=== PATIENT | female | born 1965 | race Hispanic/Latino ===

== ENCOUNTER 2021-04-18 22:57 | Inpatient (IN) | payer OTHER ==
[~2021-04-18] VITALS: Ht 165.1 cm; Wt 93.4 kg
[2021-04-18 23:09] VITALS: BP 136/74
[2021-04-18] MEDS ORDERED: CEFTRIAXONE 1G VIAL IVP ONE (23:30)
[2021-04-18] MEDS ORDERED: AZITHROMYCIN 500MG VIAL IVPB ONE (23:30)
[2021-04-18] MEDS ORDERED: 0.9% NACL 250ML IVPB ONE (23:30)
[2021-04-18 23:44] VITALS: BP 107/62
[2021-04-18 23:51] LABS: BASOPHILS % (AUTO) 0.1 % (0.0-5.0); HEMATOCRIT 40.7 % (36-48); LYMPHOCYTES % (AUTO) 11.2 % (21.0-51.0); MEAN CORPUSCULAR HEMOGLOBIN 29.8 pg (27.0-33.0); MEAN CORPUSCULAR HGB CONC 32.2 g/dL (32.0-36.0); MEAN CORPUSCULAR VOLUME 92.7 fL (79-99); MONOCYTES % (AUTO) 4.2 % (3.0-13.0); NEUTROPHILS % (AUTO) 83.9 % (40.0-77.0); PLATELET COUNT (AUTO) 195 K/uL (130-400); RED BLOOD CELL COUNT(AUTO) 4.39 MIL/uL (4.00-5.50); RED CELL DISTRIBUTION WIDTH 12.8 % (11.0-15.5)
[2021-04-19] VITALS (10 sets, daily range): BP systolic 107–121; BP diastolic 49–75
[2021-04-19 00:10] LABS: PROTHROMBIN TIME 10.9 SEC (9.6-11.6)
[2021-04-19 00:12] LABS: ALBUMIN 2.6 g/dL (3.5-5.0); BILIRUBIN,TOTAL 0.3 mg/dL (0.2-1.0); CREATININE 4.6 mg/dL (0.5-1.5); PARTIAL THROMBOPLASTIN TIME 30.2 SEC (26.3-35.5); POTASSIUM 5.4 mmol/L (3.5-5.1); TOTAL PROTEIN, SERUM 7.5 g/dL (6.0-8.3)
[2021-04-19 00:34] LABS: B-TYPE NATRIURETIC PEPTIDE 20 pg/mL (0-100)
[2021-04-19] MEDS ORDERED: CEFTRIAXONE 1G VIAL ONE (00:40)
[2021-04-19] MEDS ORDERED: AZITHROMYCIN 500MG+NS 250ML 250 ML IV ONE (00:40)
[2021-04-19] MEDS: DEXAMETHASONE SOD PHOSPHATE 4 MG/ML 1ML VIAL IVP SCH ×3 (00:43→23:21)
[2021-04-19] MEDS ORDERED: INSULIN HUMULIN R 100 UNIT/ML 3ML IV ONE (02:00)
[2021-04-19] MEDS ORDERED: 0.9%NACL 1000ML 2,000 ML IV ONE ×2 (03:53→04:00)
[2021-04-19 04:37] LABS: ABG BASE EXCESS -7.7 mmol/L (-2.0-3.0); ABG HCO3 17.7 mmol/L (21.0-28.0); ABG OXYGEN SATURATION 89.8 % (95.0-99.0); ABG PCO2 36 mmHg (32-45)
[2021-04-19] MEDS: CEFTRIAXONE 1G VIAL IVP SCH ×2 (05:00→17:19)
[2021-04-19] MEDS ORDERED: DEXTROSE 5 %-0.45 % NACL 1,000 ML IV PRN (05:00)
[2021-04-19] MEDS: ALBUTEROL INHALER 90MCG/INH IH SCH ×4 (05:00→22:46)
[2021-04-19] MEDS ORDERED: 0.9%NACL 1000ML 1,000 ML IV SCH (05:00)
[2021-04-19] MEDS ORDERED: ERGOCALCIFEROL (VITAMIN D2) 50,000 UNIT CAPSULE PO ONE (05:00)
[2021-04-19] MEDS ORDERED: KAYEXALATE 15GM/60ML PO ONE (05:00)
[2021-04-19] MEDS ORDERED: INSULIN HUMULIN R 100 UNIT/ML 3ML ONE (06:09)
[2021-04-19] MEDS ORDERED: 0.9%NACL 100ML 100 ML ONE (06:10)
[2021-04-19 06:20] LABS: CREATININE 4.2 mg/dL (0.5-1.5); MAGNESIUM 2.5 mg/dL (1.80-2.40); PHOSPHORUS 3.8 mg/dL (2.5-4.9); POTASSIUM 5.3 mmol/L (3.5-5.1)
[2021-04-19] MEDS ORDERED: 0.9%NACL 1000ML 1,000 ML IV ONE (06:24)
[2021-04-19 06:30] LABS: HEMOGLOBIN A1C 8.9 % (4.0-6.0)
[2021-04-19] MEDS: 0.9%NACL 1000ML 1,000 ML IV SCH ×4 (06:31→20:38)
[2021-04-19] MEDS ORDERED: ERGOCALCIFEROL (VITAMIN D2) 50,000 UNIT CAPSULE ONE (06:39)
[2021-04-19] MEDS: INSULIN REGULAR, HUMAN 3ML 100 UNIT in 0.9%NACL 100ML 99 ML IV PRN ×2 (06:48)
[2021-04-19] MEDS: DOXYCYCLINE 100MG+NS 250ML IV SCH ×2 (06:48→17:19)
[2021-04-19] MEDS ORDERED: KAYEXALATE 15GM/60ML ONE (06:56)
[2021-04-19] MEDS: ASCORBIC ACID 500 MG TAB PO SCH (09:00)
[2021-04-19] MEDS: ZINC SULFATE 220 CAPSULE PO SCH (09:00)
[2021-04-19] MEDS ORDERED: HEPARIN 5,000 UNIT VIAL SQ SCH (09:00)
[2021-04-19] MEDS: FAMOTIDINE 20MG TAB PO SCH (09:00)
[2021-04-19 12:18] LABS: CREATININE 4.1 mg/dL (0.5-1.5); MAGNESIUM 2.4 mg/dL (1.80-2.40); POTASSIUM 3.9 mmol/L (3.5-5.1)
[2021-04-19 14:14] LABS: ABG BASE EXCESS -12.3 mmol/L (-2.0-3.0); ABG HCO3 13.1 mmol/L (21.0-28.0); ABG OXYGEN SATURATION 93.4 % (95.0-99.0); ABG PCO2 29 mmHg (32-45)
[2021-04-19 17:32] LABS: CREATININE 3.8 mg/dL (0.5-1.5); MAGNESIUM 2.4 mg/dL (1.80-2.40); POTASSIUM 4.5 mmol/L (3.5-5.1)
[2021-04-19 18:55] LABS: ABG HCO3 13.9 mmol/L (21.0-28.0); ABG OXYGEN SATURATION 92.3 % (95.0-99.0); ABG PCO2 29 mmHg (32-45)
[2021-04-19 23:12] LABS: CREATININE 3.6 mg/dL (0.5-1.5); MAGNESIUM 2.2 mg/dL (1.80-2.40); POTASSIUM 3.8 mmol/L (3.5-5.1)
[2021-04-20] VITALS (13 sets, daily range): BP systolic 100–131; BP diastolic 56–68
[2021-04-20] MEDS ORDERED: INSULIN HUMULIN R 100 UNIT/ML 3ML ONE ×2 (01:24→22:51)
[2021-04-20 04:21] LABS: ABG BASE EXCESS -11.9 mmol/L (-2.0-3.0); ABG HCO3 12.5 mmol/L (21.0-28.0); ABG OXYGEN SATURATION 88.9 % (95.0-99.0); ABG PCO2 26 mmHg (32-45)
[2021-04-20] MEDS: ALBUTEROL INHALER 90MCG/INH IH SCH ×3 (05:08→17:19)
[2021-04-20] MEDS: DOXYCYCLINE 100MG+NS 250ML IV SCH ×2 (05:08→17:20)
[2021-04-20] MEDS: DEXAMETHASONE SOD PHOSPHATE 4 MG/ML 1ML VIAL IVP SCH ×2 (05:08→23:30)
[2021-04-20] MEDS: CEFTRIAXONE 1G VIAL IVP SCH ×2 (05:08→17:20)
[2021-04-20 05:26] LABS: BASOPHILS % (AUTO) 0.2 % (0.0-5.0); HEMATOCRIT 42.2 % (36-48); LYMPHOCYTES % (AUTO) 9.4 % (21.0-51.0); MEAN CORPUSCULAR HEMOGLOBIN 30.2 pg (27.0-33.0); MEAN CORPUSCULAR HGB CONC 32.2 g/dL (32.0-36.0); MEAN CORPUSCULAR VOLUME 93.8 fL (79-99); NEUTROPHILS % (AUTO) 86.1 % (40.0-77.0); PLATELET COUNT (AUTO) 238 K/uL (130-400); RED CELL DISTRIBUTION WIDTH 12.8 % (11.0-15.5); WHITE BLOOD COUNT (AUTO) 10.6 K/uL (4.8-10.8)
[2021-04-20] MEDS: 0.9%NACL 1000ML 1,000 ML IV SCH ×4 (06:00→16:00)
[2021-04-20 06:03] LABS: BILIRUBIN,TOTAL 0.3 mg/dL (0.2-1.0); CREATININE 3.2 mg/dL (0.5-1.5); TOTAL PROTEIN, SERUM 7.4 g/dL (6.0-8.3)
[2021-04-20 07:22] LABS: APPEARANCE,URINE Cloudy (CLEAR); BILIRUBIN,URINE Negative (NEGATIVE); COLOR,URINE Yellow (YELLOW); GLUCOSE, URINE (UA) Negative (NEGATIVE); KETONES,URINE Trace mg/dL (NEGATIVE); LEUKOCYTE ESTERASE ,URINE Trace (NEGATIVE); NITRATE,URINE Negative (NEGATIVE); OCCULT BLOOD,URINE Negative (NEGATIVE); PROTEIN,URINE POS 1+ mg/dL (NEGATIVE); UROBILINOGEN,URINE 0.2 mg/dL (0.2-1.0)
[2021-04-20 07:24] LABS: PROTEIN,URINE RANDOM 69.3 mg/dL (0-11.9)
[2021-04-20 07:36] LABS: BACTERIA,URINE Few /HPF (None Seen); RBC,URINE 0-1 /HPF (0-1); WBC,URINE 0-1 /HPF (0-1); YEAST,URINE BUDDING Many /HPF (None Seen)
[2021-04-20 07:37] LABS: SQUAMOUS EPITHELIAL CELL,UR 0-2 /HPF (0-2)
[2021-04-20] MEDS: ENOXAPARIN SODIUM 30 MG/0.3 ML SQ SCH (09:00)
[2021-04-20] MEDS: ZINC SULFATE 220 CAPSULE PO SCH (09:00)
[2021-04-20] MEDS: FAMOTIDINE 20MG TAB PO SCH (09:00)
[2021-04-20] MEDS: ASCORBIC ACID 500 MG TAB PO SCH (09:00)
[2021-04-20 14:08] LABS: CREATININE 2.8 mg/dL (0.5-1.5)
[2021-04-20] MEDS ORDERED: LIDOCAINE HCL-MPF 1% 2ML VIAL ONE (14:59)
[2021-04-20] MEDS: POTASSIUM CHLORIDE 10MEQ/100ML 100 ML IV PRN (15:10)
[2021-04-20] MEDS: D5W-1/2 NS/20MEQ KCL 1,000 ML IV SCH ×2 (16:09→21:00)
[2021-04-20 20:29] LABS: CREATININE 2.5 mg/dL (0.5-1.5); POTASSIUM 3.4 mmol/L (3.5-5.1)
[2021-04-21] VITALS (9 sets, daily range): BP systolic 102–133; BP diastolic 49–74
[2021-04-21] MEDS: ALBUTEROL INHALER 90MCG/INH IH SCH ×5 (00:14→23:00)
[2021-04-21] MEDS: INSULIN REGULAR, HUMAN 3ML 100 UNIT in 0.9%NACL 100ML 99 ML IV PRN ×2 (00:28)
[2021-04-21 02:01] LABS: CREATININE 2.3 mg/dL (0.5-1.5); MAGNESIUM 1.9 mg/dL (1.80-2.40)
[2021-04-21] MEDS: D5W-1/2 NS/20MEQ KCL 1,000 ML IV SCH ×3 (04:07→15:21)
[2021-04-21] MEDS: DOXYCYCLINE 100MG+NS 250ML IV SCH ×2 (05:00→17:57)
[2021-04-21 05:37] LABS: BASOPHILS % (AUTO) 0.1 % (0.0-5.0); HEMATOCRIT 35.4 % (36-48); LYMPHOCYTES % (AUTO) 6.9 % (21.0-51.0); MEAN CORPUSCULAR HEMOGLOBIN 29.8 pg (27.0-33.0); MEAN CORPUSCULAR HGB CONC 32.8 g/dL (32.0-36.0); NEUTROPHILS % (AUTO) 89.8 % (40.0-77.0); PLATELET COUNT (AUTO) 243 K/uL (130-400); RED BLOOD CELL COUNT(AUTO) 3.89 MIL/uL (4.00-5.50); WHITE BLOOD COUNT (AUTO) 10.5 K/uL (4.8-10.8)
[2021-04-21 06:00] LABS: ALBUMIN 1.7 g/dL (3.5-5.0); BILIRUBIN,TOTAL 0.5 mg/dL (0.2-1.0); CREATININE 2.1 mg/dL (0.5-1.5); CRP QUANTITATIVE 39.4 mg/L (0.00-9.0); MAGNESIUM 1.8 mg/dL (1.80-2.40); TOTAL PROTEIN, SERUM 6.8 g/dL (6.0-8.3)
[2021-04-21] MEDS: CEFTRIAXONE 1G VIAL IVP SCH ×2 (06:31→17:56)
[2021-04-21] MEDS: DEXAMETHASONE SOD PHOSPHATE 4 MG/ML 1ML VIAL IVP SCH ×2 (06:31→23:30)
[2021-04-21] MEDS: ZINC SULFATE 220 CAPSULE PO SCH (09:39)
[2021-04-21] MEDS: FAMOTIDINE 20MG TAB PO SCH (09:39)
[2021-04-21] MEDS: ASCORBIC ACID 500 MG TAB PO SCH (09:39)
[2021-04-21] MEDS: ENOXAPARIN SODIUM 30 MG/0.3 ML SQ SCH (09:39)
[2021-04-21] MEDS ORDERED: GLUCAGON 1MG KIT 1 MG ML IM PRN (12:00)
[2021-04-21] MEDS: INSULIN R PO SS2 SQ SCH ×2 (16:34→20:07)
[2021-04-21 17:00] LABS: CREATININE 1.9 mg/dL (0.5-1.5); POTASSIUM 3.6 mmol/L (3.5-5.1)
[2021-04-21] MEDS: GUAIFENESIN SUGAR-FREE 100 MG/5 ML UDCUP PO PRN (20:29)
[2021-04-22] VITALS (10 sets, daily range): BP systolic 112–128; BP diastolic 38–77
[2021-04-22] MEDS: DEXAMETHASONE SOD PHOSPHATE 4 MG/ML 1ML VIAL IVP SCH ×2 (05:00→23:00)
[2021-04-22] MEDS: ALBUTEROL INHALER 90MCG/INH IH SCH ×4 (05:46→23:00)
[2021-04-22] MEDS: DOXYCYCLINE 100MG+NS 250ML IV SCH ×2 (05:58→17:13)
[2021-04-22] MEDS: CEFTRIAXONE 1G VIAL IVP SCH ×2 (05:58→17:13)
[2021-04-22 07:23] LABS: BASOPHILS % (AUTO) 0.1 % (0.0-5.0); HEMATOCRIT 37.8 % (36-48); MEAN CORPUSCULAR HEMOGLOBIN 29.7 pg (27.0-33.0); MEAN CORPUSCULAR HGB CONC 32.8 g/dL (32.0-36.0); MEAN CORPUSCULAR VOLUME 90.4 fL (79-99); MONOCYTES % (AUTO) 1.1 % (3.0-13.0); NEUTROPHILS % (AUTO) 93.6 % (40.0-77.0); PLATELET COUNT (AUTO) 249 K/uL (130-400); RED BLOOD CELL COUNT(AUTO) 4.18 MIL/uL (4.00-5.50); WHITE BLOOD COUNT (AUTO) 11.8 K/uL (4.8-10.8)
[2021-04-22] MEDS: INSULIN R PO SS2 SQ SCH ×4 (07:30→21:00)
[2021-04-22] MEDS: INSULIN HUMULIN R 100 UNIT/ML 3ML SQ SCH ×3 (07:30→17:00)
[2021-04-22 07:46] LABS: ALBUMIN 1.9 g/dL (3.5-5.0); BILIRUBIN,TOTAL 0.2 mg/dL (0.2-1.0); CREATININE 1.5 mg/dL (0.5-1.5); CRP QUANTITATIVE 42.2 mg/L (0.00-9.0); POTASSIUM 3.2 mmol/L (3.5-5.1); TOTAL PROTEIN, SERUM 6.5 g/dL (6.0-8.3)
[2021-04-22] MEDS ORDERED: INSULIN GLARGINE 100 UNITS/ML 10 ML VIAL SQ SCH (08:00)
[2021-04-22] MEDS: ASCORBIC ACID 500 MG TAB PO SCH (09:14)
[2021-04-22] MEDS: FAMOTIDINE 20MG TAB PO SCH (09:14)
[2021-04-22] MEDS: ZINC SULFATE 220 CAPSULE PO SCH (09:14)
[2021-04-22] MEDS: ENOXAPARIN SODIUM 30 MG/0.3 ML SQ SCH (09:15)
[2021-04-22] MEDS ORDERED: SODIUM BICARBONATE 650 MG TAB PO SCH ×2 (09:30→21:00)
[2021-04-22] MEDS ORDERED: COMPOUND IV REFRIGERATED 1 EACH IVSOLN MISC PRN (20:00)
[2021-04-22] MEDS ORDERED: REMDESIVIR (EUA) 520 200 MG in 0.9% NACL 250ML 250 ML IV ONE (20:00)
[2021-04-22] MEDS ORDERED: PHARMACY COMMUNICATION MISC SCH (20:00)
[2021-04-23] VITALS (11 sets, daily range): BP systolic 120–152; BP diastolic 42–85
[2021-04-23] MEDS: GUAIFENESIN SUGAR-FREE 100 MG/5 ML UDCUP PO PRN (00:06)
[2021-04-23 04:09] LABS: ABG BASE EXCESS -3.4 mmol/L (-2.0-3.0); ABG HCO3 19.5 mmol/L (21.0-28.0); ABG OXYGEN SATURATION 91.8 % (95.0-99.0); ABG PCO2 30 mmHg (32-45)
[2021-04-23] MEDS: DEXAMETHASONE SOD PHOSPHATE 4 MG/ML 1ML VIAL IVP SCH (05:14)
[2021-04-23] MEDS: ALBUTEROL INHALER 90MCG/INH IH SCH ×4 (05:14→23:00)
[2021-04-23] MEDS: CEFTRIAXONE 1G VIAL IVP SCH ×2 (05:14→17:16)
[2021-04-23] MEDS: DOXYCYCLINE 100MG+NS 250ML IV SCH ×2 (05:14→17:30)
[2021-04-23] MEDS: REMDESIVIR LABS MISC SCH (06:00)
[2021-04-23] MEDS: INSULIN HUMULIN R 100 UNIT/ML 3ML SQ SCH ×6 (07:30→20:59)
[2021-04-23] MEDS ORDERED: INSULIN HUMULIN R 100 UNIT/ML 3ML SQ SCH (07:30)
[2021-04-23 07:49] LABS: CREATININE 1.3 mg/dL (0.5-1.5); MAGNESIUM 1.2 mg/dL (1.80-2.40); PHOSPHORUS 1.8 mg/dL (2.5-4.9); POTASSIUM 3.3 mmol/L (3.5-5.1)
[2021-04-23] MEDS: INSULIN GLARGINE 100 UNITS/ML 10 ML VIAL SQ SCH (08:00)
[2021-04-23 08:27] LABS: BASOPHILS % (AUTO) 0.3 % (0.0-5.0); EOSINOPHILS % (AUTO) 0.5 % (0.0-8.0); HEMATOCRIT 39.3 % (36-48); MEAN CORPUSCULAR HEMOGLOBIN 29.7 pg (27.0-33.0); MEAN CORPUSCULAR HGB CONC 33.6 g/dL (32.0-36.0); MEAN CORPUSCULAR VOLUME 88.5 fL (79-99); MONOCYTES % (AUTO) 1.8 % (3.0-13.0); NEUTROPHILS % (AUTO) 90.4 % (40.0-77.0); PLATELET COUNT (AUTO) 191 K/uL (130-400); RED BLOOD CELL COUNT(AUTO) 4.44 MIL/uL (4.00-5.50); RED CELL DISTRIBUTION WIDTH 13.1 % (11.0-15.5); WHITE BLOOD COUNT (AUTO) 10.2 K/uL (4.8-10.8)
[2021-04-23] MEDS: FAMOTIDINE 20MG TAB PO SCH (09:00)
[2021-04-23] MEDS: DEXTROSE 5%-WATER 1,000 ML IV SCH (09:00)
[2021-04-23] MEDS: BARICITINIB (EUA) 2 MG TABLET PO SCH (09:00)
[2021-04-23] MEDS: ZINC SULFATE 220 CAPSULE PO SCH (09:00)
[2021-04-23] MEDS: ENOXAPARIN SODIUM 40 MG/0.4 ML SYRINGE SQ SCH ×2 (09:00→21:03)
[2021-04-23] MEDS: ASCORBIC ACID 500 MG TAB PO SCH (09:00)
[2021-04-23] MEDS ORDERED: REMDESIVIR (EUA) 520 200 MG in 0.9% NACL 250ML 250 ML IV SCH (10:00)
[2021-04-23] MEDS ORDERED: SODIUM BICARBONATE 650 MG TAB ONE (10:23)
[2021-04-23] MEDS: MAGNESIUM 2GM PREMIX 50ML 50 ML IV PRN (12:00)
[2021-04-23] MEDS: POTASSIUM CHLORIDE 10MEQ/100ML 100 ML IV PRN (14:22)
[2021-04-23] MEDS ORDERED: LIDOCAINE HCL-MPF 1% 2ML VIAL ONE (14:23)
[2021-04-23] MEDS ORDERED: KCL 20 MEQ ERTAB PO ONE (20:30)
[2021-04-24] VITALS: BP 129/72
[2021-04-24] MEDS: DEXAMETHASONE SOD PHOSPHATE 4 MG/ML 1ML VIAL IVP SCH ×3 (00:59→16:41)
[2021-04-24 04:00] VITALS: BP 115/73
[2021-04-24] MEDS: DEXTROSE 5%-WATER 1,000 ML IV SCH (05:00)
[2021-04-24] MEDS: ALBUTEROL INHALER 90MCG/INH IH SCH ×3 (05:00→16:46)
[2021-04-24 05:28] LABS: ALBUMIN 1.7 g/dL (3.5-5.0); BILIRUBIN,DIRECT 0.1 mg/dL (0.0-0.3); BILIRUBIN,TOTAL 0.3 mg/dL (0.2-1.0); CREATININE 1.1 mg/dL (0.5-1.5); CRP QUANTITATIVE 175.3 mg/L (0.00-9.0); POTASSIUM 3.4 mmol/L (3.5-5.1); TOTAL PROTEIN, SERUM 6.6 g/dL (6.0-8.3)
[2021-04-24] MEDS: CEFTRIAXONE 1G VIAL IVP SCH ×2 (05:42→16:41)
[2021-04-24] MEDS: DOXYCYCLINE 100MG+NS 250ML IV SCH ×2 (05:42→16:41)
[2021-04-24] MEDS: REMDESIVIR LABS MISC SCH (05:57)
[2021-04-24] MEDS: INSULIN HUMULIN R 100 UNIT/ML 3ML SQ SCH ×7 (05:58→20:57)
[2021-04-24 08:17] VITALS: BP 129/74
[2021-04-24] MEDS: BARICITINIB (EUA) 2 MG TABLET PO SCH (08:44)
[2021-04-24] MEDS: ENOXAPARIN SODIUM 40 MG/0.4 ML SYRINGE SQ SCH (08:44)
[2021-04-24] MEDS: ASCORBIC ACID 500 MG TAB PO SCH (08:44)
[2021-04-24] MEDS: ZINC SULFATE 220 CAPSULE PO SCH (08:44)
[2021-04-24] MEDS: FAMOTIDINE 20MG TAB PO SCH (08:44)
[2021-04-24] MEDS: INSULIN GLARGINE 100 UNITS/ML 10 ML VIAL SQ SCH (08:46)
[2021-04-24 11:28] VITALS: BP 126/74
[2021-04-24] MEDS ORDERED: ALBUTEROL INHALER 90MCG/INH IH SCH (11:30)
[2021-04-24] MEDS: REMDESIVIR (EUA) 520 100 MG in 0.9% NACL 250ML 250 ML IV SCH (14:44)
[2021-04-24 16:52] VITALS: BP 137/84
[2021-04-24 20:10] VITALS: BP 121/77
[2021-04-24] MEDS: ENOXAPARIN SODIUM 60 MG/0.6 ML SQ SCH (20:57)
[2021-04-24] MEDS ORDERED: ENOXAPARIN SODIUM 100 MG/1 ML SQ SCH (21:00)
[2021-04-25] VITALS (7 sets, daily range): BP systolic 124–148; BP diastolic 63–84
[2021-04-25] MEDS: DEXTROSE 5%-WATER 1,000 ML IV SCH (01:00)
[2021-04-25 05:06] LABS: BASOPHILS % (AUTO) 0.1 % (0.0-5.0); HEMATOCRIT 35.4 % (36-48); LYMPHOCYTES % (AUTO) 9.7 % (21.0-51.0); MEAN CORPUSCULAR HEMOGLOBIN 29.6 pg (27.0-33.0); MEAN CORPUSCULAR HGB CONC 32.8 g/dL (32.0-36.0); MEAN CORPUSCULAR VOLUME 90.3 fL (79-99); MONOCYTES % (AUTO) 2.6 % (3.0-13.0); NEUTROPHILS % (AUTO) 86.1 % (40.0-77.0); PLATELET COUNT (AUTO) 214 K/uL (130-400); RED BLOOD CELL COUNT(AUTO) 3.92 MIL/uL (4.00-5.50); RED CELL DISTRIBUTION WIDTH 13.7 % (11.0-15.5); WHITE BLOOD COUNT (AUTO) 11.2 K/uL (4.8-10.8)
[2021-04-25] MEDS: DOXYCYCLINE 100MG+NS 250ML IV SCH ×2 (05:12→17:01)
[2021-04-25] MEDS: CEFTRIAXONE 1G VIAL IVP SCH ×2 (05:12→17:01)
[2021-04-25] MEDS: DEXAMETHASONE SOD PHOSPHATE 4 MG/ML 1ML VIAL IVP SCH ×2 (05:12→17:01)
[2021-04-25] MEDS: ALBUTEROL INHALER 90MCG/INH IH SCH ×4 (05:14→18:00)
[2021-04-25 05:22] LABS: ALBUMIN 1.8 g/dL (3.5-5.0); BILIRUBIN,TOTAL 0.4 mg/dL (0.2-1.0); CREATININE 1.3 mg/dL (0.5-1.5); POTASSIUM 3.3 mmol/L (3.5-5.1); TOTAL PROTEIN, SERUM 6.3 g/dL (6.0-8.3)
[2021-04-25] MEDS: INSULIN HUMULIN R 100 UNIT/ML 3ML SQ SCH ×6 (05:33→20:59)
[2021-04-25] MEDS: PANTOPRAZOLE 40 MG TAB DR PO SCH (08:39)
[2021-04-25] MEDS: ASCORBIC ACID 500 MG TAB PO SCH (08:39)
[2021-04-25] MEDS: ZINC SULFATE 220 CAPSULE PO SCH (08:39)
[2021-04-25] MEDS: BARICITINIB (EUA) 2 MG TABLET PO SCH (08:39)
[2021-04-25] MEDS: ENOXAPARIN SODIUM 60 MG/0.6 ML SQ SCH ×2 (08:41→19:59)
[2021-04-25] MEDS: INSULIN GLARGINE 100 UNITS/ML 10 ML VIAL SQ SCH (08:44)
[2021-04-25] MEDS ORDERED: KCL 20 MEQ ERTAB PO SCH (13:30)
[2021-04-25] MEDS: REMDESIVIR (EUA) 520 100 MG in 0.9% NACL 250ML 250 ML IV SCH (15:25)
[2021-04-26 03:44] VITALS: BP 143/89
[2021-04-26 04:48] LABS: BASOPHILS % (AUTO) 0.1 % (0.0-5.0); EOSINOPHILS % (AUTO) 0.1 % (0.0-8.0); HEMATOCRIT 35.2 % (36-48); LYMPHOCYTES % (AUTO) 6.3 % (21.0-51.0); MEAN CORPUSCULAR HGB CONC 32.1 g/dL (32.0-36.0); MEAN CORPUSCULAR VOLUME 93.4 fL (79-99); MONOCYTES % (AUTO) 1.4 % (3.0-13.0); NEUTROPHILS % (AUTO) 90.9 % (40.0-77.0); PLATELET COUNT (AUTO) 193 K/uL (130-400); RED BLOOD CELL COUNT(AUTO) 3.77 MIL/uL (4.00-5.50); RED CELL DISTRIBUTION WIDTH 14.1 % (11.0-15.5); WHITE BLOOD COUNT (AUTO) 13.3 K/uL (4.8-10.8)
[2021-04-26 05:12] LABS: ALBUMIN 1.7 g/dL (3.5-5.0); BILIRUBIN,TOTAL 0.3 mg/dL (0.2-1.0); CREATININE 1.2 mg/dL (0.5-1.5); CRP QUANTITATIVE 46.2 mg/L (0.00-9.0); POTASSIUM 3.9 mmol/L (3.5-5.1); TOTAL PROTEIN, SERUM 5.9 g/dL (6.0-8.3)
[2021-04-26] MEDS: DEXAMETHASONE SOD PHOSPHATE 4 MG/ML 1ML VIAL IVP SCH ×2 (06:01→16:41)
[2021-04-26] MEDS: INSULIN HUMULIN R 100 UNIT/ML 3ML SQ SCH ×4 (06:05→20:40)
[2021-04-26 08:26] VITALS: BP 122/70
[2021-04-26] MEDS: ASCORBIC ACID 500 MG TAB PO SCH (08:26)
[2021-04-26] MEDS: ZINC SULFATE 220 CAPSULE PO SCH (08:26)
[2021-04-26] MEDS: BARICITINIB (EUA) 2 MG TABLET PO SCH (08:26)
[2021-04-26] MEDS: PANTOPRAZOLE 40 MG TAB DR PO SCH (08:26)
[2021-04-26] MEDS: ENOXAPARIN SODIUM 60 MG/0.6 ML SQ SCH ×2 (08:27→20:39)
[2021-04-26 11:02] VITALS: BP 127/75
[2021-04-26] MEDS: ALBUTEROL INHALER 90MCG/INH IH SCH ×3 (12:00→23:12)
[2021-04-26] MEDS: REMDESIVIR (EUA) 520 100 MG in 0.9% NACL 250ML 250 ML IV SCH (15:12)
[2021-04-26] MEDS: DEXTROSE 5%-WATER 1,000 ML IV SCH (16:35)
[2021-04-26 16:43] VITALS: BP 122/76
[2021-04-26 20:00] VITALS: BP 110/75
[2021-04-26 23:36] VITALS: BP 133/69
[2021-04-27 04:19] VITALS: BP 133/66
[2021-04-27] MEDS: DEXAMETHASONE SOD PHOSPHATE 4 MG/ML 1ML VIAL IVP SCH ×2 (05:02→17:30)
[2021-04-27] MEDS: ALBUTEROL INHALER 90MCG/INH IH SCH ×3 (05:03→17:30)
[2021-04-27 06:13] LABS: BASOPHILS % (AUTO) 0.1 % (0.0-5.0); HEMATOCRIT 35.5 % (36-48); LYMPHOCYTES % (AUTO) 6.4 % (21.0-51.0); MEAN CORPUSCULAR HEMOGLOBIN 30.1 pg (27.0-33.0); MEAN CORPUSCULAR VOLUME 91.3 fL (79-99); NEUTROPHILS % (AUTO) 90.8 % (40.0-77.0); PLATELET COUNT (AUTO) 215 K/uL (130-400); RED BLOOD CELL COUNT(AUTO) 3.89 MIL/uL (4.00-5.50); RED CELL DISTRIBUTION WIDTH 13.4 % (11.0-15.5); WHITE BLOOD COUNT (AUTO) 14.8 K/uL (4.8-10.8)
[2021-04-27] MEDS: INSULIN HUMULIN R 100 UNIT/ML 3ML SQ SCH ×4 (06:30→20:23)
[2021-04-27 06:37] LABS: ALBUMIN 1.8 g/dL (3.5-5.0); BILIRUBIN,TOTAL 0.4 mg/dL (0.2-1.0); CREATININE 1.3 mg/dL (0.5-1.5); POTASSIUM 3.6 mmol/L (3.5-5.1)
[2021-04-27 08:00] VITALS: BP 132/75
[2021-04-27] MEDS: BARICITINIB (EUA) 2 MG TABLET PO SCH (09:26)
[2021-04-27] MEDS: ZINC SULFATE 220 CAPSULE PO SCH (09:26)
[2021-04-27] MEDS: PANTOPRAZOLE 40 MG TAB DR PO SCH (09:26)
[2021-04-27] MEDS: ASCORBIC ACID 500 MG TAB PO SCH (09:26)
[2021-04-27] MEDS: ENOXAPARIN SODIUM 60 MG/0.6 ML SQ SCH ×2 (09:27→20:12)
[2021-04-27 12:00] VITALS: BP 128/77
[2021-04-27] MEDS: REMDESIVIR (EUA) 520 100 MG in 0.9% NACL 250ML 250 ML IV SCH (14:49)
[2021-04-27 16:00] VITALS: BP 133/69
[2021-04-27 20:00] VITALS: BP 125/70
[2021-04-27 23:44] VITALS: BP 123/68
[2021-04-28] MEDS: ALBUTEROL INHALER 90MCG/INH IH SCH ×5 (00:09→23:38)
[2021-04-28 03:42] VITALS: BP 122/66
[2021-04-28] MEDS: DEXAMETHASONE SOD PHOSPHATE 4 MG/ML 1ML VIAL IVP SCH ×2 (04:25→16:48)
[2021-04-28 05:43] LABS: BASOPHILS % (AUTO) 0.1 % (0.0-5.0); EOSINOPHILS % (AUTO) 0.1 % (0.0-8.0); HEMATOCRIT 32.8 % (36-48); LYMPHOCYTES % (AUTO) 5.8 % (21.0-51.0); MEAN CORPUSCULAR HEMOGLOBIN 29.5 pg (27.0-33.0); MEAN CORPUSCULAR HGB CONC 32.6 g/dL (32.0-36.0); MEAN CORPUSCULAR VOLUME 90.4 fL (79-99); MONOCYTES % (AUTO) 1.9 % (3.0-13.0); NEUTROPHILS % (AUTO) 91.3 % (40.0-77.0); PLATELET COUNT (AUTO) 220 K/uL (130-400); RED BLOOD CELL COUNT(AUTO) 3.63 MIL/uL (4.00-5.50); RED CELL DISTRIBUTION WIDTH 13.2 % (11.0-15.5); WHITE BLOOD COUNT (AUTO) 15.6 K/uL (4.8-10.8)
[2021-04-28 05:56] LABS: CREATININE 1.1 mg/dL (0.5-1.5); POTASSIUM 3.5 mmol/L (3.5-5.1)
[2021-04-28] MEDS: INSULIN HUMULIN R 100 UNIT/ML 3ML SQ SCH ×4 (06:28→20:22)
[2021-04-28 08:00] VITALS: BP 126/73
[2021-04-28] MEDS: ASCORBIC ACID 500 MG TAB PO SCH (08:51)
[2021-04-28] MEDS: BARICITINIB (EUA) 2 MG TABLET PO SCH (08:51)
[2021-04-28] MEDS: PANTOPRAZOLE 40 MG TAB DR PO SCH (08:51)
[2021-04-28] MEDS: ZINC SULFATE 220 CAPSULE PO SCH (08:51)
[2021-04-28] MEDS: ENOXAPARIN SODIUM 60 MG/0.6 ML SQ SCH ×2 (08:53→20:16)
[2021-04-28 12:00] VITALS: BP 125/72
[2021-04-28 16:00] VITALS: BP 110/55
[2021-04-28 20:08] VITALS: BP 133/58
[2021-04-28 23:48] VITALS: BP 123/66
[2021-04-29 04:36] VITALS: BP 122/64
[2021-04-29 04:46] LABS: HEMATOCRIT 32.3 % (36-48); MEAN CORPUSCULAR HEMOGLOBIN 29.7 pg (27.0-33.0); MEAN CORPUSCULAR HGB CONC 32.2 g/dL (32.0-36.0); MEAN CORPUSCULAR VOLUME 92.3 fL (79-99); PLATELET COUNT (AUTO) 221 K/uL (130-400); RED CELL DISTRIBUTION WIDTH 13.2 % (11.0-15.5); WHITE BLOOD COUNT (AUTO) 17.2 K/uL (4.8-10.8)
[2021-04-29 04:57] LABS: CREATININE 1.1 mg/dL (0.5-1.5); POTASSIUM 3.9 mmol/L (3.5-5.1)
[2021-04-29] MEDS: ALBUTEROL INHALER 90MCG/INH IH SCH ×3 (05:12→23:57)
[2021-04-29] MEDS: DEXAMETHASONE SOD PHOSPHATE 4 MG/ML 1ML VIAL IVP SCH ×2 (05:12→17:17)
[2021-04-29 06:18] LABS: BAND NEUTROPHILS % (MANUAL) 1 % (0-2); LYMPHOCYTES % (MANUAL) 1 % (22-44); MAN.DIFF COMMENT-IMPRESSION MANUAL DIFFERENTIAL; MONOCYTES % (MANUAL) 2 % (2-9); PLATELET MORPHOLOGY COMMENT ADEQUATE; SEGMENTED NEUTROPHILS % 96 % (40-70)
[2021-04-29] MEDS: INSULIN HUMULIN R 100 UNIT/ML 3ML SQ SCH ×5 (06:20→20:48)
[2021-04-29 07:00] VITALS: BP 111/68
[2021-04-29] MEDS: PANTOPRAZOLE 40 MG TAB DR PO SCH (10:18)
[2021-04-29] MEDS: ZINC SULFATE 220 CAPSULE PO SCH (10:18)
[2021-04-29] MEDS: ASCORBIC ACID 500 MG TAB PO SCH (10:18)
[2021-04-29] MEDS: BARICITINIB (EUA) 2 MG TABLET PO SCH (10:18)
[2021-04-29] MEDS: ENOXAPARIN SODIUM 60 MG/0.6 ML SQ SCH ×2 (10:21→20:47)
[2021-04-29 11:00] VITALS: BP 108/58
[2021-04-29 16:00] VITALS: BP 105/59
[2021-04-29] MEDS: INSULIN GLARGINE 100 UNITS/ML 10 ML VIAL SQ SCH (17:37)
[2021-04-29 20:04] VITALS: BP 101/66
[2021-04-30] VITALS (7 sets, daily range): BP systolic 102–120; BP diastolic 54–66
[2021-04-30] MEDS: DEXAMETHASONE SOD PHOSPHATE 4 MG/ML 1ML VIAL IVP SCH ×2 (04:52→17:33)
[2021-04-30] MEDS: ALBUTEROL INHALER 90MCG/INH IH SCH ×3 (05:01→17:39)
[2021-04-30 05:54] LABS: BASOPHILS % (AUTO) 0.1 % (0.0-5.0); EOSINOPHILS % (AUTO) 0.1 % (0.0-8.0); HEMATOCRIT 28.6 % (36-48); LYMPHOCYTES % (AUTO) 8.3 % (21.0-51.0); MEAN CORPUSCULAR HEMOGLOBIN 29.4 pg (27.0-33.0); MEAN CORPUSCULAR HGB CONC 32.2 g/dL (32.0-36.0); MEAN CORPUSCULAR VOLUME 91.4 fL (79-99); MONOCYTES % (AUTO) 1.8 % (3.0-13.0); PLATELET COUNT (AUTO) 219 K/uL (130-400); RED BLOOD CELL COUNT(AUTO) 3.13 MIL/uL (4.00-5.50); RED CELL DISTRIBUTION WIDTH 12.9 % (11.0-15.5); WHITE BLOOD COUNT (AUTO) 16.1 K/uL (4.8-10.8)
[2021-04-30 06:10] LABS: CREATININE 1.2 mg/dL (0.5-1.5); POTASSIUM 3.6 mmol/L (3.5-5.1)
[2021-04-30] MEDS: INSULIN HUMULIN R 100 UNIT/ML 3ML SQ SCH ×7 (06:13→21:14)
[2021-04-30] MEDS: ASCORBIC ACID 500 MG TAB PO SCH (09:53)
[2021-04-30] MEDS: BARICITINIB (EUA) 2 MG TABLET PO SCH (09:53)
[2021-04-30] MEDS: PANTOPRAZOLE 40 MG TAB DR PO SCH (09:53)
[2021-04-30] MEDS: ENOXAPARIN SODIUM 60 MG/0.6 ML SQ SCH ×2 (09:53→21:02)
[2021-04-30] MEDS: ZINC SULFATE 220 CAPSULE PO SCH (09:53)
[2021-04-30] MEDS: INSULIN GLARGINE 100 UNITS/ML 10 ML VIAL SQ SCH (17:38)
[2021-05-01] MEDS: ALBUTEROL INHALER 90MCG/INH IH SCH ×4 (00:45→16:55)
[2021-05-01 04:12] VITALS: BP 124/62
[2021-05-01] MEDS: DEXAMETHASONE SOD PHOSPHATE 4 MG/ML 1ML VIAL IVP SCH ×2 (05:35→16:51)
[2021-05-01 05:36] LABS: CREATININE 1.1 mg/dL (0.5-1.5); CRP QUANTITATIVE 5.7 mg/L (0.00-9.0); POTASSIUM 4.1 mmol/L (3.5-5.1)
[2021-05-01] MEDS: INSULIN HUMULIN R 100 UNIT/ML 3ML SQ SCH ×6 (05:48→21:22)
[2021-05-01 08:00] VITALS: BP 117/69
[2021-05-01] MEDS: ASCORBIC ACID 500 MG TAB PO SCH (08:50)
[2021-05-01] MEDS: PANTOPRAZOLE 40 MG TAB DR PO SCH (08:50)
[2021-05-01] MEDS: ZINC SULFATE 220 CAPSULE PO SCH (08:50)
[2021-05-01] MEDS: BARICITINIB (EUA) 2 MG TABLET PO SCH (08:50)
[2021-05-01] MEDS: ENOXAPARIN SODIUM 60 MG/0.6 ML SQ SCH ×2 (08:51→21:03)
[2021-05-01 12:00] VITALS: BP 114/64
[2021-05-01 16:00] VITALS: BP 125/78
[2021-05-01] MEDS: INSULIN GLARGINE 100 UNITS/ML 10 ML VIAL SQ SCH (16:55)
[2021-05-01] MEDS ORDERED: INSULIN HUMULIN R 100 UNIT/ML 3ML SQ SCH (17:00)
[2021-05-01 20:01] VITALS: BP 109/58
[2021-05-01 23:37] VITALS: BP 113/57
[2021-05-02] VITALS (7 sets, daily range): BP systolic 102–117; BP diastolic 51–66
[2021-05-02] MEDS: ALBUTEROL INHALER 90MCG/INH IH SCH ×5 (00:43→23:26)
[2021-05-02 06:27] LABS: BASOPHILS % (AUTO) 0.1 % (0.0-5.0); HEMATOCRIT 26.6 % (36-48); LYMPHOCYTES % (AUTO) 9.7 % (21.0-51.0); MEAN CORPUSCULAR HEMOGLOBIN 30.1 pg (27.0-33.0); MEAN CORPUSCULAR HGB CONC 32.3 g/dL (32.0-36.0); MONOCYTES % (AUTO) 3.4 % (3.0-13.0); NEUTROPHILS % (AUTO) 85.9 % (40.0-77.0); PLATELET COUNT (AUTO) 226 K/uL (130-400); RED BLOOD CELL COUNT(AUTO) 2.86 MIL/uL (4.00-5.50); RED CELL DISTRIBUTION WIDTH 12.8 % (11.0-15.5); WHITE BLOOD COUNT (AUTO) 14.9 K/uL (4.8-10.8)
[2021-05-02] MEDS: DEXAMETHASONE SOD PHOSPHATE 4 MG/ML 1ML VIAL IVP SCH (06:29)
[2021-05-02] MEDS: INSULIN HUMULIN R 100 UNIT/ML 3ML SQ SCH ×7 (06:31→20:40)
[2021-05-02] MEDS: BARICITINIB (EUA) 2 MG TABLET PO SCH (08:54)
[2021-05-02] MEDS: ASCORBIC ACID 500 MG TAB PO SCH (08:54)
[2021-05-02] MEDS: ZINC SULFATE 220 CAPSULE PO SCH (08:54)
[2021-05-02] MEDS: ENOXAPARIN SODIUM 60 MG/0.6 ML SQ SCH (08:55)
[2021-05-02] MEDS: PANTOPRAZOLE 40 MG/VIAL IVP SCH ×2 (09:00→19:57)
[2021-05-02 13:37] LABS: HEMATOCRIT 30.3 % (36-48)
[2021-05-02] MEDS ORDERED: INSULIN GLARGINE 100 UNITS/ML 10 ML VIAL SQ SCH (18:00)
[2021-05-02 19:00] LABS: HEMATOCRIT 28.9 % (36-48)
[2021-05-03] VITALS (7 sets, daily range): BP systolic 89–111; BP diastolic 46–63
[2021-05-03] MEDS: ALBUTEROL INHALER 90MCG/INH IH SCH ×4 (04:35→23:14)
[2021-05-03] MEDS: INSULIN HUMULIN R 100 UNIT/ML 3ML SQ SCH ×7 (06:01→20:19)
[2021-05-03 06:09] LABS: BASOPHILS % (AUTO) 0.1 % (0.0-5.0); HEMATOCRIT 29.2 % (36-48); LYMPHOCYTES % (AUTO) 13.4 % (21.0-51.0); MEAN CORPUSCULAR HEMOGLOBIN 29.1 pg (27.0-33.0); MEAN CORPUSCULAR HGB CONC 31.5 g/dL (32.0-36.0); MEAN CORPUSCULAR VOLUME 92.4 fL (79-99); MONOCYTES % (AUTO) 3.2 % (3.0-13.0); PLATELET COUNT (AUTO) 221 K/uL (130-400); RED BLOOD CELL COUNT(AUTO) 3.16 MIL/uL (4.00-5.50); RED CELL DISTRIBUTION WIDTH 12.7 % (11.0-15.5); WHITE BLOOD COUNT (AUTO) 19.1 K/uL (4.8-10.8)
[2021-05-03 06:32] LABS: POTASSIUM 3.8 mmol/L (3.5-5.1)
[2021-05-03] MEDS: PANTOPRAZOLE 40 MG/VIAL IVP SCH ×2 (09:33→20:18)
[2021-05-03] MEDS: BARICITINIB (EUA) 2 MG TABLET PO SCH (09:33)
[2021-05-03] MEDS: ASCORBIC ACID 500 MG TAB PO SCH (09:33)
[2021-05-03] MEDS: ZINC SULFATE 220 CAPSULE PO SCH (09:33)
[2021-05-03] MEDS: DEXAMETHASONE SOD PHOSPHATE 4 MG/ML 1ML VIAL IVP SCH (09:35)
[2021-05-03] MEDS ORDERED: ENOXAPARIN SODIUM 40 MG/0.4 ML SYRINGE SQ ONE (12:30)
[2021-05-03] MEDS ORDERED: IOHEXOL 350 MG/ML 100ML INFUS..BTL IV ONE (15:34)
[2021-05-03] MEDS ORDERED: INSULIN GLARGINE 100 UNITS/ML 10 ML VIAL SQ SCH ×2 (18:00)
[2021-05-03] MEDS ORDERED: ENOXAPARIN SODIUM 100 MG/1 ML SQ SCH (21:00)
[2021-05-04 05:04] VITALS: BP 110/57
[2021-05-04] MEDS: ALBUTEROL INHALER 90MCG/INH IH SCH ×4 (05:26→23:27)
[2021-05-04] MEDS: INSULIN HUMULIN R 100 UNIT/ML 3ML SQ SCH ×7 (06:06→20:14)
[2021-05-04 06:53] LABS: BASOPHILS % (AUTO) 0.1 % (0.0-5.0); EOSINOPHILS % (AUTO) 0.8 % (0.0-8.0); HEMATOCRIT 28.1 % (36-48); LYMPHOCYTES % (AUTO) 7.3 % (21.0-51.0); MEAN CORPUSCULAR VOLUME 93.7 fL (79-99); MONOCYTES % (AUTO) 3.6 % (3.0-13.0); NEUTROPHILS % (AUTO) 86.8 % (40.0-77.0); PLATELET COUNT (AUTO) 195 K/uL (130-400); WHITE BLOOD COUNT (AUTO) 15.7 K/uL (4.8-10.8)
[2021-05-04 08:00] VITALS: BP 96/55
[2021-05-04] MEDS ORDERED: INSULIN GLARGINE 100 UNITS/ML 10 ML VIAL SQ SCH (09:00)
[2021-05-04 09:02] LABS: CREATININE 1.3 mg/dL (0.5-1.5); POTASSIUM 4.6 mmol/L (3.5-5.1)
[2021-05-04] MEDS: DEXAMETHASONE SOD PHOSPHATE 4 MG/ML 1ML VIAL IVP SCH ×2 (09:29→20:12)
[2021-05-04] MEDS: PANTOPRAZOLE 40 MG/VIAL IVP SCH ×2 (09:29→20:12)
[2021-05-04] MEDS: BARICITINIB (EUA) 2 MG TABLET PO SCH (09:32)
[2021-05-04] MEDS: ZINC SULFATE 220 CAPSULE PO SCH (09:32)
[2021-05-04] MEDS: ASCORBIC ACID 500 MG TAB PO SCH (09:32)
[2021-05-04] MEDS: ENOXAPARIN SODIUM 40 MG/0.4 ML SYRINGE SQ SCH (09:33)
[2021-05-04] MEDS: DOXYCYCLINE 100MG+NS 250ML 250 ML IV SCH ×2 (09:52→20:51)
[2021-05-04] MEDS ORDERED: CEFEPIME HCL 2 GM VIAL IVP SCH (10:00)
[2021-05-04] MEDS ORDERED: 0.9% NACL 250ML IVPB SCH (10:00)
[2021-05-04] MEDS ORDERED: PHARMACY COMMUNICATION MISC SCH ×2 (10:00→14:30)
[2021-05-04] MEDS ORDERED: DOXYCYCLINE 100MG IVPB (VIAL) IVPB SCH (10:00)
[2021-05-04] MEDS: SUCRALFATE 1 GM TABLET PO SCH ×4 (11:30→20:13)
[2021-05-04 12:08] VITALS: BP 101/47
[2021-05-04] MEDS: NYSTATIN 15 GM POWDER TP SCH ×2 (18:23→20:13)
[2021-05-04 18:35] VITALS: BP 104/50
[2021-05-04 20:00] VITALS: BP 97/52
[2021-05-04] MEDS: CEFEPIME HCL 2 GM VIAL IVP SCH (20:51)
[2021-05-04] MEDS ORDERED: NYSTATIN 15 GM POWDER TP SCH (21:00)
[2021-05-05] VITALS (7 sets, daily range): BP systolic 104–123; BP diastolic 54–67
[2021-05-05] MEDS: INSULIN HUMULIN R 100 UNIT/ML 3ML SQ SCH ×7 (05:46→21:27)
[2021-05-05 06:11] LABS: BASOPHILS % (AUTO) 0.1 % (0.0-5.0); EOSINOPHILS % (AUTO) 0.1 % (0.0-8.0); HEMATOCRIT 23.2 % (36-48); LYMPHOCYTES % (AUTO) 6.2 % (21.0-51.0); MEAN CORPUSCULAR HEMOGLOBIN 29.5 pg (27.0-33.0); MEAN CORPUSCULAR HGB CONC 31.9 g/dL (32.0-36.0); MEAN CORPUSCULAR VOLUME 92.4 fL (79-99); MONOCYTES % (AUTO) 2.6 % (3.0-13.0); NEUTROPHILS % (AUTO) 89.9 % (40.0-77.0); PLATELET COUNT (AUTO) 169 K/uL (130-400); RED BLOOD CELL COUNT(AUTO) 2.51 MIL/uL (4.00-5.50); RED CELL DISTRIBUTION WIDTH 12.9 % (11.0-15.5)
[2021-05-05] MEDS: ALBUTEROL INHALER 90MCG/INH IH SCH ×3 (06:22→17:18)
[2021-05-05] MEDS: SUCRALFATE 1 GM TABLET PO SCH ×4 (06:22→21:04)
[2021-05-05 06:29] LABS: CREATININE 1.2 mg/dL (0.5-1.5); CRP QUANTITATIVE 156.9 mg/L (0.00-9.0); POTASSIUM 4.6 mmol/L (3.5-5.1)
[2021-05-05 07:09] LABS: APPEARANCE,URINE SL CLOUDY (CLEAR); BILIRUBIN,URINE NEGATIVE (NEGATIVE); COLOR,URINE YELLOW (YELLOW); GLUCOSE, URINE (UA) NEGATIVE (NEGATIVE); KETONES,URINE NEGATIVE (NEGATIVE); LEUKOCYTE ESTERASE ,URINE NEGATIVE (NEGATIVE); NITRATE,URINE NEGATIVE (NEGATIVE); OCCULT BLOOD,URINE NEGATIVE (NEGATIVE); PROTEIN,URINE NEGATIVE (NEGATIVE); UROBILINOGEN,URINE 0.2 mg/dL (0.2-1.0)
[2021-05-05 07:36] LABS: BACTERIA,URINE Rare /HPF (None Seen); RBC,URINE 0-1 /HPF (0-1); YEAST,URINE BUDDING Many /HPF (None Seen)
[2021-05-05] MEDS: BARICITINIB (EUA) 2 MG TABLET PO SCH (07:54)
[2021-05-05] MEDS: ZINC SULFATE 220 CAPSULE PO SCH (07:55)
[2021-05-05] MEDS: PANTOPRAZOLE 40 MG/VIAL IVP SCH ×2 (07:55→21:04)
[2021-05-05] MEDS: ASCORBIC ACID 500 MG TAB PO SCH (07:55)
[2021-05-05] MEDS: DEXAMETHASONE SOD PHOSPHATE 4 MG/ML 1ML VIAL IVP SCH (07:55)
[2021-05-05] MEDS: NYSTATIN 15 GM POWDER TP SCH ×3 (07:56→21:00)
[2021-05-05] MEDS: ENOXAPARIN SODIUM 40 MG/0.4 ML SYRINGE SQ SCH (07:56)
[2021-05-05] MEDS ORDERED: PHARMACY COMMUNICATION MISC SCH (11:00)
[2021-05-05] MEDS ORDERED: 0.9% NACL 250ML 250 ML ONE (11:43)
[2021-05-05] MEDS: DOXYCYCLINE 100MG+NS 250ML 250 ML IV SCH ×2 (11:45→22:53)
[2021-05-05] MEDS: CEFEPIME HCL 2 GM VIAL IVP SCH ×2 (11:45→21:04)
[2021-05-05] MEDS: LINEZOLID 600 MG/ISO-OSM 300 ML IV SCH (13:44)
[2021-05-05] MEDS: SOLU-MEDROL 40MG VIAL IVP SCH (17:18)
[2021-05-06] MEDS: SOLU-MEDROL 40MG VIAL IVP SCH ×4 (00:17→21:27)
[2021-05-06] MEDS: LINEZOLID 600 MG/ISO-OSM 300 ML IV SCH ×2 (02:32→14:00)
[2021-05-06 03:28] VITALS: BP 122/57
[2021-05-06 04:05] LABS: ABG BASE EXCESS 3.9 mmol/L (-2.0-3.0); ABG HCO3 27.3 mmol/L (21.0-28.0); ABG OXYGEN SATURATION 92.7 % (95.0-99.0); ABG PCO2 37 mmHg (32-45)
[2021-05-06] MEDS: ALBUTEROL INHALER 90MCG/INH IH SCH ×4 (05:23→12:00)
[2021-05-06] MEDS: SUCRALFATE 1 GM TABLET PO SCH ×4 (05:23→21:29)
[2021-05-06] MEDS: INSULIN HUMULIN R 100 UNIT/ML 3ML SQ SCH ×6 (06:21→21:28)
[2021-05-06 07:48] VITALS: BP 128/64
[2021-05-06 08:07] LABS: BASOPHILS % (AUTO) 0.1 % (0.0-5.0); HEMATOCRIT 23.5 % (36-48); LYMPHOCYTES % (AUTO) 4.5 % (21.0-51.0); MEAN CORPUSCULAR HEMOGLOBIN 29.8 pg (27.0-33.0); MEAN CORPUSCULAR HGB CONC 32.8 g/dL (32.0-36.0); MEAN CORPUSCULAR VOLUME 91.1 fL (79-99); MONOCYTES % (AUTO) 2.4 % (3.0-13.0); PLATELET COUNT (AUTO) 209 K/uL (130-400); RED BLOOD CELL COUNT(AUTO) 2.58 MIL/uL (4.00-5.50); RED CELL DISTRIBUTION WIDTH 12.5 % (11.0-15.5); WHITE BLOOD COUNT (AUTO) 18.4 K/uL (4.8-10.8)
[2021-05-06 08:14] LABS: CREATININE 1.4 mg/dL (0.5-1.5)
[2021-05-06 08:19] LABS: ALBUMIN 1.6 g/dL (3.5-5.0); BILIRUBIN,TOTAL 0.2 mg/dL (0.2-1.0); CRP QUANTITATIVE 57.2 mg/L (0.00-9.0); TOTAL PROTEIN, SERUM 5.7 g/dL (6.0-8.3)
[2021-05-06] MEDS: PANTOPRAZOLE 40 MG/VIAL IVP SCH ×3 (09:00→21:29)
[2021-05-06] MEDS: ZINC SULFATE 220 CAPSULE PO SCH (09:17)
[2021-05-06] MEDS: BARICITINIB (EUA) 2 MG TABLET PO SCH (09:17)
[2021-05-06] MEDS: ASCORBIC ACID 500 MG TAB PO SCH (09:17)
[2021-05-06] MEDS: CEFEPIME HCL 2 GM VIAL IVP SCH ×3 (09:17→21:27)
[2021-05-06] MEDS: DOXYCYCLINE 100MG+NS 250ML 250 ML IV SCH ×3 (09:17→21:27)
[2021-05-06] MEDS: NYSTATIN 15 GM POWDER TP SCH ×3 (09:18→21:27)
[2021-05-06] MEDS ORDERED: INSULIN HUMULIN R 100 UNIT/ML 3ML SQ SCH (12:00)
[2021-05-06 12:03] LABS: INR 0.94 (0.85-1.15); PROTHROMBIN TIME 10.3 SEC (9.6-11.6)
[2021-05-06 12:05] LABS: PARTIAL THROMBOPLASTIN TIME 23.9 SEC (26.3-35.5)
[2021-05-06 20:50] VITALS: BP 134/76
[2021-05-07] VITALS (7 sets, daily range): BP systolic 121–159; BP diastolic 60–83
[2021-05-07] MEDS: LINEZOLID 600 MG/ISO-OSM 300 ML IV SCH ×2 (01:09→13:04)
[2021-05-07] MEDS: SOLU-MEDROL 40MG VIAL IVP SCH ×3 (05:44→21:37)
[2021-05-07 07:18] LABS: BASOPHILS % (AUTO) 0.1 % (0.0-5.0); HEMATOCRIT 24.4 % (36-48); LYMPHOCYTES % (AUTO) 5.2 % (21.0-51.0); MEAN CORPUSCULAR HEMOGLOBIN 29.7 pg (27.0-33.0); MEAN CORPUSCULAR VOLUME 92.8 fL (79-99); MONOCYTES % (AUTO) 3.6 % (3.0-13.0); NEUTROPHILS % (AUTO) 90.4 % (40.0-77.0); PLATELET COUNT (AUTO) 205 K/uL (130-400); RED BLOOD CELL COUNT(AUTO) 2.63 MIL/uL (4.00-5.50); RED CELL DISTRIBUTION WIDTH 12.7 % (11.0-15.5); WHITE BLOOD COUNT (AUTO) 15.4 K/uL (4.8-10.8)
[2021-05-07] MEDS: INSULIN HUMULIN R 100 UNIT/ML 3ML SQ SCH ×7 (07:30→21:40)
[2021-05-07] MEDS: SUCRALFATE 1 GM TABLET PO SCH ×4 (07:30→21:37)
[2021-05-07 07:42] LABS: ALBUMIN 1.6 g/dL (3.5-5.0); BILIRUBIN,TOTAL 0.2 mg/dL (0.2-1.0); CREATININE 1.4 mg/dL (0.5-1.5); CRP QUANTITATIVE 21.5 mg/L (0.00-9.0); TOTAL PROTEIN, SERUM 5.4 g/dL (6.0-8.3)
[2021-05-07] MEDS: ALBUTEROL INHALER 90MCG/INH IH SCH ×3 (08:34→17:49)
[2021-05-07] MEDS: NYSTATIN 15 GM POWDER TP SCH ×3 (09:00→21:38)
[2021-05-07] MEDS: ASCORBIC ACID 500 MG TAB PO SCH (10:10)
[2021-05-07] MEDS: PANTOPRAZOLE 40 MG/VIAL IVP SCH ×2 (10:10→21:37)
[2021-05-07] MEDS: ZINC SULFATE 220 CAPSULE PO SCH (10:10)
[2021-05-07] MEDS: DOXYCYCLINE 100MG+NS 250ML 250 ML IV SCH ×2 (10:11→21:37)
[2021-05-07] MEDS: CEFEPIME HCL 2 GM VIAL IVP SCH ×2 (10:12→21:37)
[2021-05-07] MEDS ORDERED: 0.9% NACL 250ML 250 ML ONE (20:34)
[2021-05-08] VITALS (8 sets, daily range): BP systolic 124–166; BP diastolic 57–84
[2021-05-08] MEDS: LINEZOLID 600 MG/ISO-OSM 300 ML IV SCH ×2 (01:16→14:02)
[2021-05-08 04:36] LABS: BASOPHILS % (AUTO) 0.1 % (0.0-5.0); HEMATOCRIT 22.5 % (36-48); LYMPHOCYTES % (AUTO) 4.5 % (21.0-51.0); MEAN CORPUSCULAR HEMOGLOBIN 29.5 pg (27.0-33.0); MEAN CORPUSCULAR VOLUME 92.2 fL (79-99); MONOCYTES % (AUTO) 4.2 % (3.0-13.0); NEUTROPHILS % (AUTO) 90.4 % (40.0-77.0); PLATELET COUNT (AUTO) 187 K/uL (130-400); RED BLOOD CELL COUNT(AUTO) 2.44 MIL/uL (4.00-5.50); RED CELL DISTRIBUTION WIDTH 12.6 % (11.0-15.5); WHITE BLOOD COUNT (AUTO) 16.3 K/uL (4.8-10.8)
[2021-05-08 04:50] LABS: CREATININE 1.2 mg/dL (0.5-1.5); CRP QUANTITATIVE 12.1 mg/L (0.00-9.0); POTASSIUM 3.9 mmol/L (3.5-5.1)
[2021-05-08] MEDS: ALBUTEROL INHALER 90MCG/INH IH SCH ×4 (06:00→17:06)
[2021-05-08] MEDS: SUCRALFATE 1 GM TABLET PO SCH ×4 (06:26→21:30)
[2021-05-08] MEDS: INSULIN HUMULIN R 100 UNIT/ML 3ML SQ SCH ×7 (06:27→21:00)
[2021-05-08] MEDS: SOLU-MEDROL 40MG VIAL IVP SCH ×3 (06:27→22:53)
[2021-05-08] MEDS: ZINC SULFATE 220 CAPSULE PO SCH (08:08)
[2021-05-08] MEDS: PANTOPRAZOLE 40 MG/VIAL IVP SCH ×2 (08:08→21:30)
[2021-05-08] MEDS: ASCORBIC ACID 500 MG TAB PO SCH (08:08)
[2021-05-08] MEDS: NYSTATIN 15 GM POWDER TP SCH ×3 (08:11→21:31)
[2021-05-08] MEDS: ENOXAPARIN SODIUM 40 MG/0.4 ML SYRINGE SQ SCH (09:00)
[2021-05-08] MEDS: DOXYCYCLINE 100MG+NS 250ML 250 ML IV SCH ×2 (09:11→21:34)
[2021-05-08] MEDS: CEFEPIME HCL 2 GM VIAL IVP SCH ×2 (09:12→21:34)
[2021-05-09] VITALS (7 sets, daily range): BP systolic 119–166; BP diastolic 61–85
[2021-05-09] MEDS: LINEZOLID 600 MG/ISO-OSM 300 ML IV SCH ×2 (02:23→13:23)
[2021-05-09 05:19] LABS: BASOPHILS % (AUTO) 0.1 % (0.0-5.0); HEMATOCRIT 25.2 % (36-48); LYMPHOCYTES % (AUTO) 2.8 % (21.0-51.0); MEAN CORPUSCULAR HEMOGLOBIN 30.3 pg (27.0-33.0); MEAN CORPUSCULAR HGB CONC 32.1 g/dL (32.0-36.0); MEAN CORPUSCULAR VOLUME 94.4 fL (79-99); NEUTROPHILS % (AUTO) 93.5 % (40.0-77.0); PLATELET COUNT (AUTO) 84 K/uL (130-400); RED BLOOD CELL COUNT(AUTO) 2.67 MIL/uL (4.00-5.50); RED CELL DISTRIBUTION WIDTH 12.9 % (11.0-15.5); WHITE BLOOD COUNT (AUTO) 15.5 K/uL (4.8-10.8)
[2021-05-09 05:45] LABS: CREATININE 1.5 mg/dL (0.5-1.5); CRP QUANTITATIVE 40.3 mg/L (0.00-9.0); POTASSIUM 4.4 mmol/L (3.5-5.1)
[2021-05-09] MEDS: ALBUTEROL INHALER 90MCG/INH IH SCH ×4 (06:00→17:49)
[2021-05-09] MEDS: SOLU-MEDROL 40MG VIAL IVP SCH ×4 (06:27→21:25)
[2021-05-09] MEDS: SUCRALFATE 1 GM TABLET PO SCH ×4 (06:27→21:26)
[2021-05-09] MEDS: INSULIN HUMULIN R 100 UNIT/ML 3ML SQ SCH ×7 (06:30→20:11)
[2021-05-09] MEDS ORDERED: INSULIN GLARGINE 100 UNITS/ML 10 ML VIAL SQ SCH (08:00)
[2021-05-09] MEDS ORDERED: ALTEPLASE 2MG VIAL 2 MG/VIAL VIAL IVCATH SCH (08:00)
[2021-05-09] MEDS: ZINC SULFATE 220 CAPSULE PO SCH (08:07)
[2021-05-09] MEDS: PANTOPRAZOLE 40 MG/VIAL IVP SCH ×2 (08:07→21:24)
[2021-05-09] MEDS: ASCORBIC ACID 500 MG TAB PO SCH (08:07)
[2021-05-09] MEDS: NYSTATIN 15 GM POWDER TP SCH ×3 (08:09→21:26)
[2021-05-09] MEDS: DOXYCYCLINE 100MG+NS 250ML 250 ML IV SCH ×2 (09:16→21:25)
[2021-05-09] MEDS: CEFEPIME HCL 2 GM VIAL IVP SCH ×2 (09:16→21:25)
[2021-05-09] MEDS ORDERED: 0.9% NACL 250ML 250 ML ONE (21:16)
[2021-05-09] MEDS: DEXTROSE 50%-WATER 50 ML DISP.SYRIN IV PRN (23:37)
[2021-05-10] MEDS: ALBUTEROL INHALER 90MCG/INH IH SCH ×4 (00:58→18:54)
[2021-05-10] MEDS: LINEZOLID 600 MG/ISO-OSM 300 ML IV SCH ×2 (01:28→17:00)
[2021-05-10 03:52] VITALS: BP 154/78
[2021-05-10 05:22] LABS: BASOPHILS % (AUTO) 0.2 % (0.0-5.0); EOSINOPHILS % (AUTO) 0.1 % (0.0-8.0); HEMATOCRIT 22.9 % (36-48); LYMPHOCYTES % (AUTO) 4.1 % (21.0-51.0); MEAN CORPUSCULAR HEMOGLOBIN 30.5 pg (27.0-33.0); MEAN CORPUSCULAR HGB CONC 32.3 g/dL (32.0-36.0); MEAN CORPUSCULAR VOLUME 94.2 fL (79-99); MONOCYTES % (AUTO) 2.9 % (3.0-13.0); NEUTROPHILS % (AUTO) 91.9 % (40.0-77.0); PLATELET COUNT (AUTO) 190 K/uL (130-400); RED BLOOD CELL COUNT(AUTO) 2.43 MIL/uL (4.00-5.50); RED CELL DISTRIBUTION WIDTH 12.8 % (11.0-15.5); WHITE BLOOD COUNT (AUTO) 18.4 K/uL (4.8-10.8)
[2021-05-10 05:36] LABS: CREATININE 1.4 mg/dL (0.5-1.5); POTASSIUM 4.1 mmol/L (3.5-5.1)
[2021-05-10] MEDS: INSULIN HUMULIN R 100 UNIT/ML 3ML SQ SCH ×8 (05:48→21:20)
[2021-05-10] MEDS: SUCRALFATE 1 GM TABLET PO SCH ×4 (06:27→20:53)
[2021-05-10 07:52] VITALS: BP 163/65
[2021-05-10] MEDS ORDERED: 0.9% NACL 250ML 250 ML ONE (08:43)
[2021-05-10] MEDS: ASCORBIC ACID 500 MG TAB PO SCH (08:47)
[2021-05-10] MEDS: ZINC SULFATE 220 CAPSULE PO SCH (08:47)
[2021-05-10] MEDS: PANTOPRAZOLE 40 MG/VIAL IVP SCH ×2 (08:47→20:53)
[2021-05-10] MEDS: CEFEPIME HCL 2 GM VIAL IVP SCH ×2 (08:47→21:02)
[2021-05-10] MEDS: DOXYCYCLINE 100MG+NS 250ML 250 ML IV SCH ×2 (08:48→21:02)
[2021-05-10] MEDS: SOLU-MEDROL 40MG VIAL IVP SCH ×2 (08:48→20:53)
[2021-05-10] MEDS: FLUCONAZOLE 200 MG/NS 100 ML 100 ML IV SCH (08:48)
[2021-05-10] MEDS: NYSTATIN 15 GM POWDER TP SCH ×3 (08:49→21:18)
[2021-05-10] MEDS ORDERED: ENOXAPARIN SODIUM 40 MG/0.4 ML SYRINGE SQ SCH (09:00)
[2021-05-10] MEDS ORDERED: HYDRALAZINE 20MG/ML VIAL IM PRN (10:00)
[2021-05-10] MEDS: DEXTROSE 5%-WATER 1,000 ML IV SCH ×2 (10:47→23:45)
[2021-05-10 11:35] VITALS: BP 140/71
[2021-05-10 15:59] VITALS: BP 151/70
[2021-05-10] MEDS ORDERED: INSULIN HUMULIN R 100 UNIT/ML 3ML SQ SCH (17:00)
[2021-05-10 20:03] VITALS: BP 156/78
[2021-05-10 23:20] VITALS: BP 148/71
[2021-05-11] VITALS (8 sets, daily range): BP systolic 142–169; BP diastolic 60–80
[2021-05-11] MEDS: ALBUTEROL INHALER 90MCG/INH IH SCH ×2 (00:34→05:45)
[2021-05-11] MEDS: LINEZOLID 600 MG/ISO-OSM 300 ML IV SCH ×2 (01:14→13:53)
[2021-05-11] MEDS: SUCRALFATE 1 GM TABLET PO SCH ×2 (06:27→15:05)
[2021-05-11] MEDS: INSULIN HUMULIN R 100 UNIT/ML 3ML SQ SCH ×7 (06:29→20:33)
[2021-05-11] MEDS ORDERED: FAMOTIDINE 20MG TAB ONE (06:39)
[2021-05-11] MEDS ORDERED: FAMOTIDINE 20MG TAB PO ONE (08:00)
[2021-05-11 08:09] LABS: MEAN CORPUSCULAR HEMOGLOBIN 29.7 pg (27.0-33.0); MEAN CORPUSCULAR HGB CONC 32.4 g/dL (32.0-36.0); MEAN CORPUSCULAR VOLUME 91.7 fL (79-99); RED BLOOD CELL COUNT(AUTO) 2.29 MIL/uL (4.00-5.50); RED CELL DISTRIBUTION WIDTH 12.8 % (11.0-15.5); WHITE BLOOD COUNT (AUTO) 14.6 K/uL (4.8-10.8)
[2021-05-11] MEDS: ZINC SULFATE 220 CAPSULE PO SCH (08:38)
[2021-05-11] MEDS: PANTOPRAZOLE 40 MG/VIAL IVP SCH ×2 (08:38→21:05)
[2021-05-11] MEDS: FLUCONAZOLE 200 MG/NS 100 ML 100 ML IV SCH (08:38)
[2021-05-11] MEDS: ASCORBIC ACID 500 MG TAB PO SCH (08:39)
[2021-05-11] MEDS: NYSTATIN 15 GM POWDER TP SCH ×3 (08:39→21:05)
[2021-05-11] MEDS: SOLU-MEDROL 40MG VIAL IVP SCH ×2 (08:40→21:05)
[2021-05-11 08:44] LABS: CREATININE 1.4 mg/dL (0.5-1.5); MAGNESIUM 1.3 mg/dL (1.80-2.40); PHOSPHORUS 2.2 mg/dL (2.5-4.9); POTASSIUM 3.5 mmol/L (3.5-5.1)
[2021-05-11] MEDS ORDERED: 0.9% NACL 250ML 500 ML ONE (10:26)
[2021-05-11] MEDS: CEFEPIME HCL 2 GM VIAL IVP SCH ×2 (10:28→21:05)
[2021-05-11] MEDS: DOXYCYCLINE 100MG+NS 250ML 250 ML IV SCH ×2 (10:28→21:05)
[2021-05-11] MEDS: DEXTROSE 5%-WATER 1,000 ML IV SCH (12:10)
[2021-05-11] MEDS ORDERED: AMLODIPINE 5 MG TAB ONE (14:59)
[2021-05-11] MEDS ORDERED: AMLODIPINE 5 MG TAB PO ONE (15:00)
[2021-05-11] MEDS ORDERED: HYDRALAZINE 20MG/ML VIAL IV PRN (16:00)
[2021-05-11 18:20] LABS: HEMATOCRIT 32.5 % (36-48)
[2021-05-11 18:30] LABS: CREATININE 1.4 mg/dL (0.5-1.5); MAGNESIUM 1.3 mg/dL (1.80-2.40); POTASSIUM 3.3 mmol/L (3.5-5.1)
[2021-05-11] MEDS: MAGNESIUM 2GM PREMIX 50ML 50 ML IV PRN (18:44)
[2021-05-11] MEDS ORDERED: KCL 20 MEQ ERTAB PO ONE ×2 (21:30→23:48)
[2021-05-12] VITALS: BP 125/78
[2021-05-12] MEDS: LINEZOLID 600 MG/ISO-OSM 300 ML IV SCH ×2 (02:21→14:30)
[2021-05-12 03:00] VITALS: BP 136/85
[2021-05-12 04:47] LABS: BASOPHILS % (AUTO) 0.1 % (0.0-5.0); HEMATOCRIT 31.2 % (36-48); LYMPHOCYTES % (AUTO) 3.7 % (21.0-51.0); MEAN CORPUSCULAR HEMOGLOBIN 28.5 pg (27.0-33.0); MEAN CORPUSCULAR HGB CONC 33.7 g/dL (32.0-36.0); MEAN CORPUSCULAR VOLUME 84.8 fL (79-99); MONOCYTES % (AUTO) 1.7 % (3.0-13.0); NEUTROPHILS % (AUTO) 92.5 % (40.0-77.0); NUCLEATED RED BLOOD CELLS 0.1 % (0.0-0.19); PLATELET COUNT (AUTO) 145 K/uL (130-400); RED BLOOD CELL COUNT(AUTO) 3.68 MIL/uL (4.00-5.50); RED CELL DISTRIBUTION WIDTH 16.4 % (11.0-15.5); WHITE BLOOD COUNT (AUTO) 14.7 K/uL (4.8-10.8)
[2021-05-12 05:27] LABS: ALBUMIN 1.6 g/dL (3.5-5.0); BILIRUBIN,TOTAL 0.3 mg/dL (0.2-1.0); CREATININE 1.3 mg/dL (0.5-1.5); CRP QUANTITATIVE 49.1 mg/L (0.00-9.0); POTASSIUM 3.6 mmol/L (3.5-5.1); THYROID STIMULATING HORMONE 0.07 uIU/mL (0.36-3.74); TOTAL PROTEIN, SERUM 5.7 g/dL (6.0-8.3)
[2021-05-12 08:00] VITALS: BP 124/65
[2021-05-12] MEDS: FLUCONAZOLE 200 MG/NS 100 ML 100 ML IV SCH (08:48)
[2021-05-12] MEDS: SOLU-MEDROL 40MG VIAL IVP SCH ×2 (08:51→20:33)
[2021-05-12] MEDS: ZINC SULFATE 220 CAPSULE PO SCH (08:52)
[2021-05-12] MEDS: SUCRALFATE 1 GM TABLET PO SCH ×2 (08:52→16:54)
[2021-05-12] MEDS: PANTOPRAZOLE 40 MG/VIAL IVP SCH ×2 (08:52→20:33)
[2021-05-12] MEDS: ASCORBIC ACID 500 MG TAB PO SCH (08:52)
[2021-05-12] MEDS: AMLODIPINE 5 MG TAB PO SCH (08:52)
[2021-05-12] MEDS: NYSTATIN 15 GM POWDER TP SCH ×3 (08:58→20:35)
[2021-05-12] MEDS: INSULIN HUMULIN R 100 UNIT/ML 3ML SQ SCH ×7 (09:12→21:00)
[2021-05-12] MEDS: DOXYCYCLINE 100MG+NS 250ML 250 ML IV SCH ×2 (11:24→20:33)
[2021-05-12] MEDS: CEFEPIME HCL 2 GM VIAL IVP SCH ×2 (11:26→20:33)
[2021-05-12 12:00] VITALS: BP 139/69
[2021-05-12 16:00] VITALS: BP 127/67
[2021-05-12 18:18] LABS: HEMATOCRIT 30.2 % (36-48)
[2021-05-12 19:30] VITALS: BP 110/77
[2021-05-13] VITALS (7 sets, daily range): BP systolic 121–135; BP diastolic 53–81
[2021-05-13] MEDS: ALBUTEROL INHALER 90MCG/INH IH SCH ×4 (01:18→16:52)
[2021-05-13] MEDS: LINEZOLID 600 MG/ISO-OSM 300 ML IV SCH ×2 (01:18→14:32)
[2021-05-13] MEDS: SUCRALFATE 1 GM TABLET PO SCH ×2 (05:46→16:42)
[2021-05-13] MEDS: INSULIN HUMULIN R 100 UNIT/ML 3ML SQ SCH ×7 (06:02→21:00)
[2021-05-13 06:50] LABS: ALBUMIN 1.5 g/dL (3.5-5.0); BILIRUBIN,TOTAL 0.3 mg/dL (0.2-1.0); CREATININE 1.2 mg/dL (0.5-1.5); CRP QUANTITATIVE 26.3 mg/L (0.00-9.0); POTASSIUM 3.6 mmol/L (3.5-5.1); TOTAL PROTEIN, SERUM 5.2 g/dL (6.0-8.3)
[2021-05-13 07:57] LABS: BASOPHILS % (AUTO) 0.1 % (0.0-5.0); EOSINOPHILS % (AUTO) 0.1 % (0.0-8.0); HEMATOCRIT 30.7 % (36-48); LYMPHOCYTES % (AUTO) 5.7 % (21.0-51.0); MEAN CORPUSCULAR HEMOGLOBIN 28.2 pg (27.0-33.0); MEAN CORPUSCULAR HGB CONC 31.9 g/dL (32.0-36.0); MEAN CORPUSCULAR VOLUME 88.5 fL (79-99); MONOCYTES % (AUTO) 2.1 % (3.0-13.0); NEUTROPHILS % (AUTO) 91.3 % (40.0-77.0); NUCLEATED RED BLOOD CELLS 0.2 % (0.0-0.19); PLATELET COUNT (AUTO) 126 K/uL (130-400); RED BLOOD CELL COUNT(AUTO) 3.47 MIL/uL (4.00-5.50); RED CELL DISTRIBUTION WIDTH 16.4 % (11.0-15.5)
[2021-05-13] MEDS: ASCORBIC ACID 500 MG TAB PO SCH (08:32)
[2021-05-13] MEDS: FLUCONAZOLE 200 MG/NS 100 ML 100 ML IV SCH (08:32)
[2021-05-13] MEDS: AMLODIPINE 5 MG TAB PO SCH (08:32)
[2021-05-13] MEDS: ZINC SULFATE 220 CAPSULE PO SCH (08:32)
[2021-05-13] MEDS: SOLU-MEDROL 40MG VIAL IVP SCH (08:33)
[2021-05-13] MEDS: PANTOPRAZOLE 40 MG/VIAL IVP SCH ×2 (08:33→22:07)
[2021-05-13] MEDS: NYSTATIN 15 GM POWDER TP SCH ×3 (08:37→22:09)
[2021-05-13] MEDS: DOXYCYCLINE 100MG+NS 250ML 250 ML IV SCH ×2 (09:52→22:08)
[2021-05-13] MEDS: CEFEPIME HCL 2 GM VIAL IVP SCH ×2 (09:52→22:07)
[2021-05-13] MEDS ORDERED: ATOR10TA69 PO (13:21)
[2021-05-13] MEDS: DEXAMETHASONE SOD PHOSPHATE 4 MG/ML 1ML VIAL IVP SCH (16:41)
[2021-05-14] MEDS: LINEZOLID 600 MG/ISO-OSM 300 ML IV SCH ×3 (01:39→19:29)
[2021-05-14 03:54] VITALS: BP 118/56
[2021-05-14] MEDS: DEXAMETHASONE SOD PHOSPHATE 4 MG/ML 1ML VIAL IVP SCH ×2 (04:23→20:51)
[2021-05-14 05:14] LABS: BASOPHILS % (AUTO) 0.1 % (0.0-5.0); EOSINOPHILS % (AUTO) 0.1 % (0.0-8.0); HEMATOCRIT 26.7 % (36-48); LYMPHOCYTES % (AUTO) 7.9 % (21.0-51.0); MEAN CORPUSCULAR HGB CONC 32.2 g/dL (32.0-36.0); MONOCYTES % (AUTO) 2.8 % (3.0-13.0); NEUTROPHILS % (AUTO) 88.4 % (40.0-77.0); PLATELET COUNT (AUTO) 108 K/uL (130-400); RED BLOOD CELL COUNT(AUTO) 3.07 MIL/uL (4.00-5.50); RED CELL DISTRIBUTION WIDTH 15.8 % (11.0-15.5); WHITE BLOOD COUNT (AUTO) 10.5 K/uL (4.8-10.8)
[2021-05-14 06:14] LABS: ALBUMIN 1.6 g/dL (3.5-5.0); BILIRUBIN,TOTAL 0.3 mg/dL (0.2-1.0); CREATININE 1.3 mg/dL (0.5-1.5); CRP QUANTITATIVE 12.2 mg/L (0.00-9.0); POTASSIUM 3.2 mmol/L (3.5-5.1); TOTAL PROTEIN, SERUM 4.8 g/dL (6.0-8.3)
[2021-05-14] MEDS: ALBUTEROL INHALER 90MCG/INH IH SCH ×3 (06:45→17:12)
[2021-05-14] MEDS: INSULIN HUMULIN R 100 UNIT/ML 3ML SQ SCH ×7 (06:45→20:29)
[2021-05-14] MEDS: SUCRALFATE 1 GM TABLET PO SCH ×2 (06:45→16:26)
[2021-05-14 07:38] VITALS: BP 127/73
[2021-05-14] MEDS ORDERED: 0.9% NACL 250ML 250 ML ONE ×2 (08:17→19:22)
[2021-05-14] MEDS: FLUCONAZOLE 200 MG/NS 100 ML 100 ML IV SCH (08:56)
[2021-05-14] MEDS: AMLODIPINE 5 MG TAB PO SCH (08:56)
[2021-05-14] MEDS: ASCORBIC ACID 500 MG TAB PO SCH (08:56)
[2021-05-14] MEDS: CEFEPIME HCL 2 GM VIAL IVP SCH ×2 (08:56→19:30)
[2021-05-14] MEDS: PANTOPRAZOLE 40 MG/VIAL IVP SCH ×2 (08:56→19:30)
[2021-05-14] MEDS: ZINC SULFATE 220 CAPSULE PO SCH (08:56)
[2021-05-14] MEDS: NYSTATIN 15 GM POWDER TP SCH ×3 (08:57→19:30)
[2021-05-14] MEDS: DOXYCYCLINE 100MG+NS 250ML 250 ML IV SCH ×2 (09:16→19:30)
[2021-05-14 11:52] VITALS: BP 132/78
[2021-05-14 16:00] VITALS: BP 122/56
[2021-05-14 19:53] VITALS: BP 121/64
[2021-05-14] MEDS ORDERED: ALTEPLASE 2MG VIAL 2 MG/VIAL VIAL IVCATH ONE (22:00)
[2021-05-15] VITALS: BP 115/72
[2021-05-15 03:13] VITALS: BP 139/75
[2021-05-15] MEDS: ALBUTEROL INHALER 90MCG/INH IH SCH ×5 (03:29→23:37)
[2021-05-15] MEDS: SUCRALFATE 1 GM TABLET PO SCH ×2 (05:56→16:08)
[2021-05-15] MEDS: INSULIN HUMULIN R 100 UNIT/ML 3ML SQ SCH ×7 (06:05→21:00)
[2021-05-15] MEDS: PANTOPRAZOLE 40 MG/VIAL IVP SCH (08:00)
[2021-05-15] MEDS: AMLODIPINE 5 MG TAB PO SCH (08:00)
[2021-05-15] MEDS: LINEZOLID 600 MG/ISO-OSM 300 ML IV SCH (08:00)
[2021-05-15] MEDS: DEXAMETHASONE SOD PHOSPHATE 4 MG/ML 1ML VIAL IVP SCH ×2 (08:00→20:44)
[2021-05-15] MEDS: ASCORBIC ACID 500 MG TAB PO SCH (08:00)
[2021-05-15] MEDS: ZINC SULFATE 220 CAPSULE PO SCH (08:00)
[2021-05-15] MEDS: FLUCONAZOLE 200 MG/NS 100 ML 100 ML IV SCH (08:01)
[2021-05-15] MEDS: NYSTATIN 15 GM POWDER TP SCH ×3 (08:02→20:48)
[2021-05-15 08:09] VITALS: BP 128/66
[2021-05-15] MEDS: DOXYCYCLINE 100MG+NS 250ML 250 ML IV SCH (10:03)
[2021-05-15] MEDS: CEFEPIME HCL 2 GM VIAL IVP SCH (10:03)
[2021-05-15 12:00] VITALS: BP 122/68
[2021-05-15 15:58] VITALS: BP 126/50
[2021-05-15] MEDS: ENOXAPARIN SODIUM 40 MG/0.4 ML SYRINGE SQ SCH ×2 (18:06→21:00)
[2021-05-15] MEDS: PANTOPRAZOLE 40 MG TAB DR PO SCH (20:46)
[2021-05-15 20:50] VITALS: BP 126/71
[2021-05-16 00:10] VITALS: BP 116/53
[2021-05-16 03:22] VITALS: BP 121/55
[2021-05-16 05:03] LABS: HEMATOCRIT 25.7 % (36-48); MEAN CORPUSCULAR HEMOGLOBIN 28.1 pg (27.0-33.0); MEAN CORPUSCULAR HGB CONC 33.1 g/dL (32.0-36.0); MEAN CORPUSCULAR VOLUME 85.1 fL (79-99); RED BLOOD CELL COUNT(AUTO) 3.02 MIL/uL (4.00-5.50); RED CELL DISTRIBUTION WIDTH 15.4 % (11.0-15.5); WHITE BLOOD COUNT (AUTO) 8.4 K/uL (4.8-10.8)
[2021-05-16 05:17] LABS: CARBON DIOXIDE 27 mmol/L (21-32); CHLORIDE 106 mmol/L (101-111); CREATININE 1.4 mg/dL (0.5-1.5); GLOMERULAR FILTR. RATE CALC 41 mL/min (>60); GLUCOSE,RANDOM 182 mg/dL (70-105); POTASSIUM 3.3 mmol/L (3.5-5.1); SODIUM SERUM 142 mmol/L (136-145); UREA NITROGEN, BLOOD 35 mg/dL (7-18)
[2021-05-16 05:25] LABS: CRP QUANTITATIVE < 2.00 mg/L (0.00-9.0)
[2021-05-16] MEDS: INSULIN HUMULIN R 100 UNIT/ML 3ML SQ SCH ×7 (05:51→21:00)
[2021-05-16] MEDS: ALBUTEROL INHALER 90MCG/INH IH SCH ×3 (06:12→18:46)
[2021-05-16] MEDS: SUCRALFATE 1 GM TABLET PO SCH ×3 (06:12→21:32)
[2021-05-16] MEDS ORDERED: KCL 20 MEQ ERTAB PO ONE (07:16)
[2021-05-16] MEDS: PANTOPRAZOLE 40 MG TAB DR PO SCH ×2 (07:26→21:32)
[2021-05-16] MEDS: ZINC SULFATE 220 CAPSULE PO SCH (07:26)
[2021-05-16] MEDS: AMLODIPINE 5 MG TAB PO SCH (07:26)
[2021-05-16] MEDS: ASCORBIC ACID 500 MG TAB PO SCH (07:26)
[2021-05-16] MEDS: NYSTATIN 15 GM POWDER TP SCH ×3 (07:27→21:28)
[2021-05-16] MEDS: DEXAMETHASONE SOD PHOSPHATE 4 MG/ML 1ML VIAL IVP SCH (07:27)
[2021-05-16] MEDS: ENOXAPARIN SODIUM 40 MG/0.4 ML SYRINGE SQ SCH (07:28)
[2021-05-16 08:00] VITALS: BP 147/74
[2021-05-16 12:00] VITALS: BP 119/60
[2021-05-16] MEDS: MAGNESIUM 2GM PREMIX 50ML 50 ML IV PRN (14:27)
[2021-05-16 16:00] VITALS: BP 116/59
[2021-05-16 19:35] VITALS: BP 118/70
[2021-05-17 00:13] VITALS: BP 127/72
[2021-05-17 04:29] VITALS: BP 109/49
[2021-05-17 04:42] LABS: EOSINOPHILS % (AUTO) 0.8 % (0.0-8.0); HEMATOCRIT 22.7 % (36-48); LYMPHOCYTES % (AUTO) 23.5 % (21.0-51.0); MEAN CORPUSCULAR HEMOGLOBIN 27.7 pg (27.0-33.0); MEAN CORPUSCULAR HGB CONC 31.7 g/dL (32.0-36.0); MEAN CORPUSCULAR VOLUME 87.3 fL (79-99); MONOCYTES % (AUTO) 5.3 % (3.0-13.0); NEUTROPHILS % (AUTO) 69.7 % (40.0-77.0); PLATELET COUNT (AUTO) 72 K/uL (130-400); RED CELL DISTRIBUTION WIDTH 15.3 % (11.0-15.5); WHITE BLOOD COUNT (AUTO) 9.7 K/uL (4.8-10.8)
[2021-05-17 05:07] LABS: ALANINE AMINOTRANSFERASE 20 U/L (12-78); ALBUMIN 1.7 g/dL (3.5-5.0); ASPARTATE AMINOTRANSFERASE 21 U/L (10-37); BILIRUBIN,TOTAL 0.3 mg/dL (0.2-1.0); CARBON DIOXIDE 29 mmol/L (21-32); CHLORIDE 115 mmol/L (101-111); CREATININE 1.1 mg/dL (0.5-1.5); GLOMERULAR FILTR. RATE CALC 55 mL/min (>60); GLUCOSE,RANDOM 124 mg/dL (70-105); POTASSIUM 3.8 mmol/L (3.5-5.1); SODIUM SERUM 150 mmol/L (136-145); TOTAL PROTEIN, SERUM 4.9 g/dL (6.0-8.3); UREA NITROGEN, BLOOD 37 mg/dL (7-18)
[2021-05-17] MEDS: ALBUTEROL INHALER 90MCG/INH IH SCH ×5 (05:35→23:31)
[2021-05-17] MEDS: INSULIN HUMULIN R 100 UNIT/ML 3ML SQ SCH ×6 (06:05→20:41)
[2021-05-17 06:21] LABS: CRP QUANTITATIVE < 2.00 mg/L (0.00-9.0)
[2021-05-17] MEDS: ASCORBIC ACID 500 MG TAB PO SCH (07:57)
[2021-05-17] MEDS: AMLODIPINE 5 MG TAB PO SCH (07:57)
[2021-05-17] MEDS: PANTOPRAZOLE 40 MG TAB DR PO SCH ×2 (07:57→20:41)
[2021-05-17] MEDS: ZINC SULFATE 220 CAPSULE PO SCH (07:57)
[2021-05-17] MEDS: FAMOTIDINE 20MG VIAL IV SCH (07:58)
[2021-05-17] MEDS: SUCRALFATE 1 GM TABLET PO SCH ×4 (08:04→20:41)
[2021-05-17 08:43] VITALS: BP 132/57
[2021-05-17] MEDS ORDERED: DEXAMETHASONE SOD PHOSPHATE 4 MG/ML 1ML VIAL IVP SCH (09:00)
[2021-05-17] MEDS: ENOXAPARIN SODIUM 40 MG/0.4 ML SYRINGE SQ SCH (09:00)
[2021-05-17] MEDS: NYSTATIN 15 GM POWDER TP SCH ×3 (09:24→20:41)
[2021-05-17] MEDS ORDERED: INSULIN HUMULIN R 100 UNIT/ML 3ML SQ SCH (12:00)
[2021-05-17 12:26] VITALS: BP 102/56
[2021-05-17 16:31] VITALS: BP 135/65
[2021-05-17 23:31] VITALS: BP 131/68
[2021-05-18 04:05] VITALS: BP 119/69
[2021-05-18 05:13] LABS: BASOPHILS % (AUTO) 0.1 % (0.0-5.0); EOSINOPHILS % (AUTO) 2.7 % (0.0-8.0); LYMPHOCYTES % (AUTO) 27.4 % (21.0-51.0); MEAN CORPUSCULAR HEMOGLOBIN 28.3 pg (27.0-33.0); MEAN CORPUSCULAR HGB CONC 32.7 g/dL (32.0-36.0); MEAN CORPUSCULAR VOLUME 86.5 fL (79-99); MONOCYTES % (AUTO) 4.8 % (3.0-13.0); NEUTROPHILS % (AUTO) 64.1 % (40.0-77.0); PLATELET COUNT (AUTO) 61 K/uL (130-400); RED CELL DISTRIBUTION WIDTH 15.3 % (11.0-15.5)
[2021-05-18 05:32] LABS: ALBUMIN 1.8 g/dL (3.5-5.0); BILIRUBIN,TOTAL 0.2 mg/dL (0.2-1.0); CREATININE 1.3 mg/dL (0.5-1.5); CRP QUANTITATIVE 7.4 mg/L (0.00-9.0); MAGNESIUM 1.6 mg/dL (1.80-2.40); POTASSIUM 3.4 mmol/L (3.5-5.1); TOTAL PROTEIN, SERUM 4.8 g/dL (6.0-8.3)
[2021-05-18] MEDS: ALBUTEROL INHALER 90MCG/INH IH SCH ×4 (05:36→23:48)
[2021-05-18 05:47] LABS: HEMATOCRIT 19.9 % (36-48)
[2021-05-18] MEDS ORDERED: KCL 20 MEQ ERTAB PO STA (06:00)
[2021-05-18 06:01] LABS: PLATELET MORPHOLOGY COMMENT LARGE PLTS PRESENT
[2021-05-18] MEDS: MAGNESIUM 2GM PREMIX 50ML 50 ML IV PRN (06:20)
[2021-05-18] MEDS: INSULIN HUMULIN R 100 UNIT/ML 3ML SQ SCH ×7 (06:21→21:01)
[2021-05-18 08:30] VITALS: BP 114/62
[2021-05-18] MEDS: ENOXAPARIN SODIUM 40 MG/0.4 ML SYRINGE SQ SCH (08:34)
[2021-05-18] MEDS: ASCORBIC ACID 500 MG TAB PO SCH (09:46)
[2021-05-18] MEDS: DEXAMETHASONE SOD PHOSPHATE 4 MG/ML 1ML VIAL IVP SCH (09:46)
[2021-05-18] MEDS: PANTOPRAZOLE 40 MG TAB DR PO SCH ×2 (09:46→21:01)
[2021-05-18] MEDS: SUCRALFATE 1 GM TABLET PO SCH ×4 (09:46→21:01)
[2021-05-18] MEDS: FAMOTIDINE 20MG VIAL IV SCH (09:46)
[2021-05-18] MEDS: AMLODIPINE 5 MG TAB PO SCH (09:46)
[2021-05-18] MEDS: ZINC SULFATE 220 CAPSULE PO SCH (09:46)
[2021-05-18] MEDS: NYSTATIN 15 GM POWDER TP SCH ×3 (09:53→21:01)
[2021-05-18 12:50] VITALS: BP 107/60
[2021-05-18 16:48] VITALS: BP 120/68
[2021-05-18 19:41] VITALS: BP 137/73
[2021-05-18 20:30] LABS: HEMATOCRIT 23.5 % (36-48); MEAN CORPUSCULAR HEMOGLOBIN 28.8 pg (27.0-33.0); MEAN CORPUSCULAR HGB CONC 32.3 g/dL (32.0-36.0); PLATELET COUNT (AUTO) 57 K/uL (130-400); RED BLOOD CELL COUNT(AUTO) 2.64 MIL/uL (4.00-5.50); RED CELL DISTRIBUTION WIDTH 14.9 % (11.0-15.5); WHITE BLOOD COUNT (AUTO) 7.3 K/uL (4.8-10.8)
[2021-05-18 21:13] LABS: LYMPHOCYTES % (MANUAL) 20 % (22-44); MAN.DIFF COMMENT-IMPRESSION MANUAL DIFFERENTIAL; MONOCYTES % (MANUAL) 4 % (2-9); SEGMENTED NEUTROPHILS % 76 % (40-70)
[2021-05-18 21:14] LABS: PLATELET MORPHOLOGY COMMENT DECREASED
[2021-05-18 23:17] VITALS: BP 118/49
[2021-05-19 03:59] VITALS: BP 124/52
[2021-05-19 04:49] LABS: BASOPHILS % (AUTO) 0.1 % (0.0-5.0); EOSINOPHILS % (AUTO) 2.6 % (0.0-8.0); HEMATOCRIT 22.1 % (36-48); LYMPHOCYTES % (AUTO) 28.3 % (21.0-51.0); MEAN CORPUSCULAR HEMOGLOBIN 28.5 pg (27.0-33.0); MEAN CORPUSCULAR HGB CONC 32.6 g/dL (32.0-36.0); MEAN CORPUSCULAR VOLUME 87.4 fL (79-99); MONOCYTES % (AUTO) 5.6 % (3.0-13.0); NEUTROPHILS % (AUTO) 61.7 % (40.0-77.0); PLATELET COUNT (AUTO) 54 K/uL (130-400); RED BLOOD CELL COUNT(AUTO) 2.53 MIL/uL (4.00-5.50); WHITE BLOOD COUNT (AUTO) 9.8 K/uL (4.8-10.8)
[2021-05-19 05:12] LABS: ALBUMIN 1.8 g/dL (3.5-5.0); BILIRUBIN,TOTAL 0.2 mg/dL (0.2-1.0); CREATININE 1.1 mg/dL (0.5-1.5); CRP QUANTITATIVE 13.3 mg/L (0.00-9.0); MAGNESIUM 1.8 mg/dL (1.80-2.40); PHOSPHORUS 2.4 mg/dL (2.5-4.9); TOTAL PROTEIN, SERUM 4.8 g/dL (6.0-8.3)
[2021-05-19] MEDS: ALBUTEROL INHALER 90MCG/INH IH SCH ×4 (05:53→23:04)
[2021-05-19] MEDS: INSULIN HUMULIN R 100 UNIT/ML 3ML SQ SCH ×7 (05:53→20:19)
[2021-05-19 08:00] VITALS: BP 111/64
[2021-05-19] MEDS: DEXAMETHASONE SOD PHOSPHATE 4 MG/ML 1ML VIAL IVP SCH (09:22)
[2021-05-19] MEDS: NYSTATIN 15 GM POWDER TP SCH ×3 (09:22→20:20)
[2021-05-19] MEDS: SUCRALFATE 1 GM TABLET PO SCH ×4 (09:22→20:18)
[2021-05-19] MEDS: PANTOPRAZOLE 40 MG TAB DR PO SCH ×2 (09:22→20:18)
[2021-05-19] MEDS: AMLODIPINE 5 MG TAB PO SCH (09:22)
[2021-05-19 11:31] VITALS: BP 112/54
[2021-05-19 15:47] VITALS: BP 110/63
[2021-05-19 19:31] VITALS: BP 99/69
[2021-05-19 23:22] VITALS: BP 131/70
[2021-05-20 03:26] VITALS: BP 131/60
[2021-05-20 04:41] LABS: BASOPHILS % (AUTO) 0.3 % (0.0-5.0); EOSINOPHILS % (AUTO) 1.5 % (0.0-8.0); HEMATOCRIT 21.9 % (36-48); LYMPHOCYTES % (AUTO) 33.1 % (21.0-51.0); MEAN CORPUSCULAR HGB CONC 32.4 g/dL (32.0-36.0); MEAN CORPUSCULAR VOLUME 86.2 fL (79-99); MONOCYTES % (AUTO) 5.9 % (3.0-13.0); PLATELET COUNT (AUTO) 60 K/uL (130-400); RED BLOOD CELL COUNT(AUTO) 2.54 MIL/uL (4.00-5.50); WHITE BLOOD COUNT (AUTO) 9.7 K/uL (4.8-10.8)
[2021-05-20 05:11] LABS: ALBUMIN 1.8 g/dL (3.5-5.0); BILIRUBIN,TOTAL 0.2 mg/dL (0.2-1.0); CRP QUANTITATIVE 18.3 mg/L (0.00-9.0); MAGNESIUM 1.6 mg/dL (1.80-2.40); POTASSIUM 3.7 mmol/L (3.5-5.1); TOTAL PROTEIN, SERUM 4.9 g/dL (6.0-8.3)
[2021-05-20] MEDS: ALBUTEROL INHALER 90MCG/INH IH SCH ×4 (05:18→23:19)
[2021-05-20] MEDS: MAGNESIUM 2GM PREMIX 50ML 50 ML IV PRN (05:35)
[2021-05-20] MEDS: INSULIN HUMULIN R 100 UNIT/ML 3ML SQ SCH ×7 (05:46→22:06)
[2021-05-20 07:46] VITALS: BP 132/63
[2021-05-20] MEDS: DEXAMETHASONE SOD PHOSPHATE 4 MG/ML 1ML VIAL IVP SCH ×2 (08:57→22:04)
[2021-05-20] MEDS: NYSTATIN 15 GM POWDER TP SCH ×3 (08:57→22:06)
[2021-05-20] MEDS: AMLODIPINE 5 MG TAB PO SCH (08:57)
[2021-05-20] MEDS: PANTOPRAZOLE 40 MG TAB DR PO SCH ×2 (08:57→22:04)
[2021-05-20] MEDS: SUCRALFATE 1 GM TABLET PO SCH ×4 (08:57→22:04)
[2021-05-20 10:03] LABS: HEMATOCRIT 22.1 % (36-48)
[2021-05-20 11:50] VITALS: BP 102/61
[2021-05-20] MEDS ORDERED: PEG 3350/NA SULF,BICARB,CL/KCL 4000 ML SOLN PO SCH (14:00)
[2021-05-20 16:19] VITALS: BP 123/67
[2021-05-20 19:28] VITALS: BP 118/76
[2021-05-20 21:57] LABS: HEMATOCRIT 21.9 % (36-48)
[2021-05-20 23:20] VITALS: BP 103/67
[2021-05-20] MEDS: DEXTROSE 50%-WATER 50 ML DISP.SYRIN IV PRN (23:47)
[2021-05-21] VITALS (7 sets, daily range): BP systolic 93–168; BP diastolic 56–75
[2021-05-21] MEDS: ALBUTEROL INHALER 90MCG/INH IH SCH ×4 (05:18→23:42)
[2021-05-21 05:35] LABS: BASOPHILS % (AUTO) 0.3 % (0.0-5.0); EOSINOPHILS % (AUTO) 0.5 % (0.0-8.0); LYMPHOCYTES % (AUTO) 18.7 % (21.0-51.0); MEAN CORPUSCULAR HEMOGLOBIN 28.3 pg (27.0-33.0); MEAN CORPUSCULAR HGB CONC 32.4 g/dL (32.0-36.0); MEAN CORPUSCULAR VOLUME 87.3 fL (79-99); MONOCYTES % (AUTO) 3.9 % (3.0-13.0); NEUTROPHILS % (AUTO) 69.3 % (40.0-77.0); NUCLEATED RED BLOOD CELLS 0.5 % (0.0-0.19); PLATELET COUNT (AUTO) 84 K/uL (130-400); RED BLOOD CELL COUNT(AUTO) 2.37 MIL/uL (4.00-5.50); RED CELL DISTRIBUTION WIDTH 14.9 % (11.0-15.5); WHITE BLOOD COUNT (AUTO) 10.3 K/uL (4.8-10.8)
[2021-05-21 05:38] LABS: HEMATOCRIT 20.7 % (36-48)
[2021-05-21 06:00] LABS: ALBUMIN 1.8 g/dL (3.5-5.0); BILIRUBIN,TOTAL 0.2 mg/dL (0.2-1.0); CREATININE 0.9 mg/dL (0.5-1.5); CRP QUANTITATIVE 34.6 mg/L (0.00-9.0); MAGNESIUM 1.8 mg/dL (1.80-2.40); PHOSPHORUS 3.5 mg/dL (2.5-4.9); POTASSIUM 3.6 mmol/L (3.5-5.1); TOTAL PROTEIN, SERUM 5.1 g/dL (6.0-8.3)
[2021-05-21] MEDS: INSULIN HUMULIN R 100 UNIT/ML 3ML SQ SCH ×7 (06:30→20:43)
[2021-05-21] MEDS: DEXAMETHASONE SOD PHOSPHATE 4 MG/ML 1ML VIAL IVP SCH ×2 (08:50→20:43)
[2021-05-21] MEDS: NYSTATIN 15 GM POWDER TP SCH ×3 (08:51→20:43)
[2021-05-21] MEDS: SUCRALFATE 1 GM TABLET PO SCH ×4 (08:51→20:43)
[2021-05-21] MEDS: POLYETHYLENE GLYCOL 3350 17 GM POWD.PACK PO SCH (08:51)
[2021-05-21] MEDS: PANTOPRAZOLE 40 MG TAB DR PO SCH ×2 (08:51→20:43)
[2021-05-21] MEDS: LACTATED RINGERS 1000ML 1,000 ML IV SCH ×2 (08:55→20:43)
[2021-05-21] MEDS: AMLODIPINE 5 MG TAB PO SCH (12:43)
[2021-05-21 18:14] LABS: BASOPHILS % (AUTO) 0.3 % (0.0-5.0); EOSINOPHILS % (AUTO) 0.1 % (0.0-8.0); HEMATOCRIT 24.7 % (36-48); LYMPHOCYTES % (AUTO) 16.8 % (21.0-51.0); MEAN CORPUSCULAR HEMOGLOBIN 29.6 pg (27.0-33.0); MONOCYTES % (AUTO) 4.4 % (3.0-13.0); NEUTROPHILS % (AUTO) 71.8 % (40.0-77.0); NUCLEATED RED BLOOD CELLS 0.7 % (0.0-0.19); PLATELET COUNT (AUTO) 95 K/uL (130-400); RED BLOOD CELL COUNT(AUTO) 2.84 MIL/uL (4.00-5.50); RED CELL DISTRIBUTION WIDTH 14.2 % (11.0-15.5); WHITE BLOOD COUNT (AUTO) 10.3 K/uL (4.8-10.8)
[2021-05-22 03:58] VITALS: BP 119/64
[2021-05-22] MEDS: ALBUTEROL INHALER 90MCG/INH IH SCH ×2 (06:04→23:09)
[2021-05-22] MEDS: INSULIN HUMULIN R 100 UNIT/ML 3ML SQ SCH ×7 (07:30→20:58)
[2021-05-22 08:23] LABS: MEAN CORPUSCULAR HEMOGLOBIN 29.2 pg (27.0-33.0); MEAN CORPUSCULAR HGB CONC 33.5 g/dL (32.0-36.0); MEAN CORPUSCULAR VOLUME 87.1 fL (79-99); NUCLEATED RED BLOOD CELLS 1.2 % (0.0-0.19); RED BLOOD CELL COUNT(AUTO) 2.64 MIL/uL (4.00-5.50); RED CELL DISTRIBUTION WIDTH 14.8 % (11.0-15.5); WHITE BLOOD COUNT (AUTO) 10.3 K/uL (4.8-10.8)
[2021-05-22 08:28] VITALS: BP_SYST 113; BP_SYST 125; BP_DIAS 65
[2021-05-22 08:44] LABS: ALBUMIN 1.8 g/dL (3.5-5.0); BILIRUBIN,TOTAL 0.2 mg/dL (0.2-1.0); CRP QUANTITATIVE 24.1 mg/L (0.00-9.0); POTASSIUM 3.6 mmol/L (3.5-5.1)
[2021-05-22] MEDS: NYSTATIN 15 GM POWDER TP SCH ×3 (09:00→20:59)
[2021-05-22] MEDS: SUCRALFATE 1 GM TABLET PO SCH ×4 (09:00→20:54)
[2021-05-22] MEDS: POLYETHYLENE GLYCOL 3350 17 GM POWD.PACK PO SCH (09:00)
[2021-05-22 09:14] LABS: INR 0.97 (0.85-1.15); PROTHROMBIN TIME 10.6 SEC (9.6-11.6)
[2021-05-22 09:15] LABS: PARTIAL THROMBOPLASTIN TIME 22.2 SEC (26.3-35.5)
[2021-05-22] MEDS: PANTOPRAZOLE 40 MG TAB DR PO SCH ×2 (09:57→20:54)
[2021-05-22] MEDS: DEXAMETHASONE SOD PHOSPHATE 4 MG/ML 1ML VIAL IVP SCH ×2 (09:57→20:54)
[2021-05-22] MEDS: AMLODIPINE 5 MG TAB PO SCH (09:57)
[2021-05-22] MEDS ORDERED: DIATR MEGLU/DIATRIZOATE SODIUM 30 ML BOTTLE ONE (11:25)
[2021-05-22 12:11] VITALS: BP 140/80
[2021-05-22] MEDS ORDERED: EMPA1TAB9 PO (15:31)
[2021-05-22] MEDS ORDERED: IOHEXOL-350 50ML VIAL IV ONE (15:57)
[2021-05-22 16:30] VITALS: BP 123/69
[2021-05-22 19:00] VITALS: BP 126/69
[2021-05-22 20:54] LABS: HEMATOCRIT 22.7 % (36-48)
[2021-05-22 23:19] VITALS: BP 108/56
[2021-05-23 04:26] VITALS: BP 128/67
[2021-05-23] MEDS: ALBUTEROL INHALER 90MCG/INH IH SCH ×3 (05:17→18:17)
[2021-05-23] MEDS: INSULIN HUMULIN R 100 UNIT/ML 3ML SQ SCH ×4 (06:03→16:43)
[2021-05-23 07:36] VITALS: BP 120/74
[2021-05-23] MEDS: PANTOPRAZOLE 40 MG TAB DR PO SCH ×2 (08:46→20:31)
[2021-05-23] MEDS: AMLODIPINE 5 MG TAB PO SCH (08:47)
[2021-05-23] MEDS: SUCRALFATE 1 GM TABLET PO SCH ×4 (08:47→20:29)
[2021-05-23] MEDS: POLYETHYLENE GLYCOL 3350 17 GM POWD.PACK PO SCH (08:47)
[2021-05-23] MEDS: DEXAMETHASONE SOD PHOSPHATE 4 MG/ML 1ML VIAL IVP SCH ×2 (08:47→20:29)
[2021-05-23] MEDS: NYSTATIN 15 GM POWDER TP SCH ×3 (08:55→20:29)
[2021-05-23 09:01] LABS: BASOPHILS % (AUTO) 0.1 % (0.0-5.0); EOSINOPHILS % (AUTO) 0.2 % (0.0-8.0); HEMATOCRIT 25.2 % (36-48); MEAN CORPUSCULAR HEMOGLOBIN 29.2 pg (27.0-33.0); MEAN CORPUSCULAR HGB CONC 32.9 g/dL (32.0-36.0); MEAN CORPUSCULAR VOLUME 88.7 fL (79-99); MONOCYTES % (AUTO) 5.1 % (3.0-13.0); NEUTROPHILS % (AUTO) 73.8 % (40.0-77.0); NUCLEATED RED BLOOD CELLS 0.7 % (0.0-0.19); PLATELET COUNT (AUTO) 117 K/uL (130-400); RED BLOOD CELL COUNT(AUTO) 2.84 MIL/uL (4.00-5.50); RED CELL DISTRIBUTION WIDTH 14.8 % (11.0-15.5); WHITE BLOOD COUNT (AUTO) 9.9 K/uL (4.8-10.8)
[2021-05-23 09:11] LABS: POTASSIUM 3.2 mmol/L (3.5-5.1)
[2021-05-23 09:16] LABS: ALBUMIN 2.1 g/dL (3.5-5.0); BILIRUBIN,TOTAL 0.3 mg/dL (0.2-1.0); CRP QUANTITATIVE 22.3 mg/L (0.00-9.0); TOTAL PROTEIN, SERUM 5.6 g/dL (6.0-8.3)
[2021-05-23 11:33] VITALS: BP 114/59
[2021-05-23 15:23] VITALS: BP 124/74
[2021-05-23 19:36] VITALS: BP 123/65
[2021-05-23 23:28] VITALS: BP 120/63
[2021-05-24 03:28] LABS: BASOPHILS % (AUTO) 0.1 % (0.0-5.0); EOSINOPHILS % (AUTO) 0.1 % (0.0-8.0); HEMATOCRIT 22.2 % (36-48); LYMPHOCYTES % (AUTO) 12.5 % (21.0-51.0); MEAN CORPUSCULAR HGB CONC 33.3 g/dL (32.0-36.0); MEAN CORPUSCULAR VOLUME 87.1 fL (79-99); MONOCYTES % (AUTO) 3.1 % (3.0-13.0); NEUTROPHILS % (AUTO) 82.4 % (40.0-77.0); NUCLEATED RED BLOOD CELLS 0.2 % (0.0-0.19); PLATELET COUNT (AUTO) 120 K/uL (130-400); RED BLOOD CELL COUNT(AUTO) 2.55 MIL/uL (4.00-5.50); WHITE BLOOD COUNT (AUTO) 8.5 K/uL (4.8-10.8)
[2021-05-24 03:29] VITALS: BP 117/55
[2021-05-24 03:38] LABS: ALBUMIN 1.7 g/dL (3.5-5.0); BILIRUBIN,TOTAL 0.2 mg/dL (0.2-1.0); CREATININE 0.8 mg/dL (0.5-1.5); TOTAL PROTEIN, SERUM 4.3 g/dL (6.0-8.3)
[2021-05-24 03:39] LABS: POTASSIUM 2.8 mmol/L (3.5-5.1)
[2021-05-24] MEDS: KCL 20 MEQ ERTAB PO PRN ×6 (03:52→13:56)
[2021-05-24] MEDS ORDERED: POTASSIUM CHLORIDE 20MEQ/100ML 100 ML IV PRN (04:00)
[2021-05-24] MEDS ORDERED: POTASSIUM CHLORIDE 10% ELIXIR 20 MEQ/15 ML UDCUP PO PRN (04:00)
[2021-05-24] MEDS ORDERED: LIDOCAINE HCL-MPF 1% 2ML VIAL IV PRN (04:00)
[2021-05-24] MEDS ORDERED: MAGNESIUM 2GM PREMIX 50ML 50 ML IV ONE (04:35)
[2021-05-24] MEDS ORDERED: MAGNESIUM 2GM PREMIX 50ML 50 ML IV PRN (05:00)
[2021-05-24] MEDS: INSULIN HUMULIN R 100 UNIT/ML 3ML SQ SCH ×7 (05:38→21:00)
[2021-05-24] MEDS: ALBUTEROL INHALER 90MCG/INH IH SCH ×2 (05:55)
[2021-05-24] MEDS: SUCRALFATE 1 GM TABLET PO SCH ×4 (08:29→20:29)
[2021-05-24] MEDS: AMLODIPINE 5 MG TAB PO SCH (08:30)
[2021-05-24] MEDS: PANTOPRAZOLE 40 MG TAB DR PO SCH ×2 (08:30→20:29)
[2021-05-24] MEDS: POLYETHYLENE GLYCOL 3350 17 GM POWD.PACK PO SCH (08:30)
[2021-05-24] MEDS: NYSTATIN 15 GM POWDER TP SCH ×3 (08:30→21:20)
[2021-05-24] MEDS: DEXAMETHASONE SOD PHOSPHATE 4 MG/ML 1ML VIAL IVP SCH ×2 (08:31→20:29)
[2021-05-24 08:58] VITALS: BP 128/77
[2021-05-24 12:23] VITALS: BP 109/72
[2021-05-24 16:36] VITALS: BP 118/70
[2021-05-24 20:00] VITALS: BP 146/82
[2021-05-24] MEDS: ATORVASTATIN 40 MG TABLET PO SCH (20:29)
[2021-05-24 23:59] VITALS: BP 113/55
[2021-05-25 05:56] LABS: BASOPHILS % (AUTO) 0.1 % (0.0-5.0); EOSINOPHILS % (AUTO) 0.1 % (0.0-8.0); LYMPHOCYTES % (AUTO) 13.5 % (21.0-51.0); MEAN CORPUSCULAR HEMOGLOBIN 29.2 pg (27.0-33.0); MEAN CORPUSCULAR HGB CONC 32.4 g/dL (32.0-36.0); MEAN CORPUSCULAR VOLUME 90.1 fL (79-99); MONOCYTES % (AUTO) 3.2 % (3.0-13.0); NEUTROPHILS % (AUTO) 81.6 % (40.0-77.0); PLATELET COUNT (AUTO) 122 K/uL (130-400); RED BLOOD CELL COUNT(AUTO) 2.33 MIL/uL (4.00-5.50); RED CELL DISTRIBUTION WIDTH 15.2 % (11.0-15.5); WHITE BLOOD COUNT (AUTO) 8.8 K/uL (4.8-10.8)
[2021-05-25 06:40] LABS: ALBUMIN 1.9 g/dL (3.5-5.0); BILIRUBIN,TOTAL 0.3 mg/dL (0.2-1.0); CREATININE 0.9 mg/dL (0.5-1.5); CRP QUANTITATIVE 7.2 mg/L (0.00-9.0); MAGNESIUM 1.8 mg/dL (1.80-2.40); POTASSIUM 4.4 mmol/L (3.5-5.1)
[2021-05-25] MEDS: INSULIN HUMULIN R 100 UNIT/ML 3ML SQ SCH ×8 (07:20→21:00)
[2021-05-25 08:00] VITALS: BP 112/73
[2021-05-25] MEDS: DEXAMETHASONE SOD PHOSPHATE 4 MG/ML 1ML VIAL IVP SCH ×2 (09:28→20:25)
[2021-05-25] MEDS: SUCRALFATE 1 GM TABLET PO SCH ×4 (09:28→20:25)
[2021-05-25] MEDS: POLYETHYLENE GLYCOL 3350 17 GM POWD.PACK PO SCH (09:29)
[2021-05-25] MEDS: AMLODIPINE 5 MG TAB PO SCH (09:29)
[2021-05-25] MEDS: PANTOPRAZOLE 40 MG TAB DR PO SCH ×2 (09:29→20:25)
[2021-05-25 12:00] VITALS: BP 130/70
[2021-05-25] MEDS: NYSTATIN 15 GM POWDER TP SCH ×3 (14:00→21:00)
[2021-05-25 16:00] VITALS: BP 117/59
[2021-05-25] MEDS: LACTATED RINGERS 1000ML 1,000 ML IV SCH (16:41)
[2021-05-25 20:00] VITALS: BP 104/64
[2021-05-25] MEDS: ATORVASTATIN 40 MG TABLET PO SCH (20:25)
[2021-05-25 20:49] LABS: HEMATOCRIT 28.6 % (36-48)
[2021-05-25 23:50] VITALS: BP 116/62
[2021-05-26 04:00] VITALS: BP 104/45
[2021-05-26] MEDS: INSULIN HUMULIN R 100 UNIT/ML 3ML SQ SCH ×7 (05:38→21:51)
[2021-05-26 05:55] LABS: BASOPHILS % (AUTO) 0.1 % (0.0-5.0); EOSINOPHILS % (AUTO) 0.1 % (0.0-8.0); HEMATOCRIT 25.6 % (36-48); LYMPHOCYTES % (AUTO) 16.6 % (21.0-51.0); MEAN CORPUSCULAR HEMOGLOBIN 28.8 pg (27.0-33.0); MEAN CORPUSCULAR HGB CONC 33.2 g/dL (32.0-36.0); MEAN CORPUSCULAR VOLUME 86.8 fL (79-99); MONOCYTES % (AUTO) 3.9 % (3.0-13.0); NEUTROPHILS % (AUTO) 77.9 % (40.0-77.0); PLATELET COUNT (AUTO) 107 K/uL (130-400); RED BLOOD CELL COUNT(AUTO) 2.95 MIL/uL (4.00-5.50); RED CELL DISTRIBUTION WIDTH 15.7 % (11.0-15.5); WHITE BLOOD COUNT (AUTO) 9.8 K/uL (4.8-10.8)
[2021-05-26 06:39] LABS: ALBUMIN 1.9 g/dL (3.5-5.0); BILIRUBIN,TOTAL 0.4 mg/dL (0.2-1.0); CREATININE 1.1 mg/dL (0.5-1.5); CRP QUANTITATIVE 7.8 mg/L (0.00-9.0); POTASSIUM 4.2 mmol/L (3.5-5.1); TOTAL PROTEIN, SERUM 4.8 g/dL (6.0-8.3)
[2021-05-26 08:00] VITALS: BP 112/69
[2021-05-26] MEDS: POLYETHYLENE GLYCOL 3350 17 GM POWD.PACK PO SCH (09:00)
[2021-05-26] MEDS: AMLODIPINE 5 MG TAB PO SCH (09:24)
[2021-05-26] MEDS: DEXAMETHASONE SOD PHOSPHATE 4 MG/ML 1ML VIAL IVP SCH ×2 (09:24→20:28)
[2021-05-26] MEDS: SUCRALFATE 1 GM TABLET PO SCH ×4 (09:24→20:27)
[2021-05-26] MEDS: PANTOPRAZOLE 40 MG TAB DR PO SCH ×2 (09:24→20:28)
[2021-05-26] MEDS: NYSTATIN 15 GM POWDER TP SCH ×2 (09:26→16:59)
[2021-05-26 12:00] VITALS: BP 96/60
[2021-05-26] MEDS: LACTATED RINGERS 1000ML 1,000 ML IV SCH (12:00)
[2021-05-26 16:00] VITALS: BP 102/64
[2021-05-26 20:04] VITALS: BP 118/65
[2021-05-26] MEDS: ATORVASTATIN 40 MG TABLET PO SCH (20:27)
[2021-05-26 23:27] VITALS: BP 108/57
[2021-05-27 03:33] VITALS: BP 116/61
[2021-05-27 05:50] LABS: BASOPHILS % (AUTO) 0.1 % (0.0-5.0); LYMPHOCYTES % (AUTO) 16.9 % (21.0-51.0); MEAN CORPUSCULAR HGB CONC 32.5 g/dL (32.0-36.0); MEAN CORPUSCULAR VOLUME 89.2 fL (79-99); MONOCYTES % (AUTO) 4.1 % (3.0-13.0); NEUTROPHILS % (AUTO) 77.7 % (40.0-77.0); PLATELET COUNT (AUTO) 100 K/uL (130-400); RED BLOOD CELL COUNT(AUTO) 2.69 MIL/uL (4.00-5.50); RED CELL DISTRIBUTION WIDTH 15.2 % (11.0-15.5); WHITE BLOOD COUNT (AUTO) 7.8 K/uL (4.8-10.8)
[2021-05-27 06:06] LABS: ALBUMIN 1.9 g/dL (3.5-5.0); BILIRUBIN,TOTAL 0.4 mg/dL (0.2-1.0); POTASSIUM 3.4 mmol/L (3.5-5.1); TOTAL PROTEIN, SERUM 4.7 g/dL (6.0-8.3)
[2021-05-27] MEDS: INSULIN HUMULIN R 100 UNIT/ML 3ML SQ SCH ×6 (07:30→21:32)
[2021-05-27] MEDS: LACTATED RINGERS 1000ML 1,000 ML IV SCH ×2 (08:00→20:34)
[2021-05-27 08:16] VITALS: BP 124/71
[2021-05-27] MEDS: POLYETHYLENE GLYCOL 3350 17 GM POWD.PACK PO SCH (09:00)
[2021-05-27] MEDS: NYSTATIN 15 GM POWDER TP SCH ×3 (09:00→20:25)
[2021-05-27] MEDS: AMLODIPINE 5 MG TAB PO SCH (09:00)
[2021-05-27] MEDS: PANTOPRAZOLE 40 MG TAB DR PO SCH ×2 (09:00→20:25)
[2021-05-27] MEDS: SUCRALFATE 1 GM TABLET PO SCH ×4 (09:00→20:25)
[2021-05-27] MEDS: DEXAMETHASONE SOD PHOSPHATE 4 MG/ML 1ML VIAL IVP SCH ×2 (09:53→20:25)
[2021-05-27 11:35] VITALS: BP 117/63
[2021-05-27 17:01] VITALS: BP 104/60
[2021-05-27 20:23] VITALS: BP 110/70
[2021-05-27] MEDS: ATORVASTATIN 40 MG TABLET PO SCH (20:25)
[2021-05-27] MEDS ORDERED: ERYTHROMYCIN BASE 500 MG TABLET PO SCH ×2 (22:00)
[2021-05-27 23:38] VITALS: BP 127/69
[2021-05-28 03:38] VITALS: BP 144/86
[2021-05-28 05:32] LABS: BASOPHILS % (AUTO) 0.1 % (0.0-5.0); HEMATOCRIT 22.1 % (36-48); LYMPHOCYTES % (AUTO) 18.6 % (21.0-51.0); MEAN CORPUSCULAR HEMOGLOBIN 29.7 pg (27.0-33.0); MEAN CORPUSCULAR VOLUME 89.8 fL (79-99); MONOCYTES % (AUTO) 4.1 % (3.0-13.0); NEUTROPHILS % (AUTO) 75.8 % (40.0-77.0); PLATELET COUNT (AUTO) 111 K/uL (130-400); RED BLOOD CELL COUNT(AUTO) 2.46 MIL/uL (4.00-5.50); RED CELL DISTRIBUTION WIDTH 15.2 % (11.0-15.5); WHITE BLOOD COUNT (AUTO) 7.3 K/uL (4.8-10.8)
[2021-05-28 05:48] LABS: ALBUMIN 1.9 g/dL (3.5-5.0); BILIRUBIN,TOTAL 0.3 mg/dL (0.2-1.0); POTASSIUM 3.4 mmol/L (3.5-5.1); TOTAL PROTEIN, SERUM 4.6 g/dL (6.0-8.3)
[2021-05-28] MEDS: KCL 20 MEQ ERTAB PO PRN (06:20)
[2021-05-28] MEDS: INSULIN HUMULIN R 100 UNIT/ML 3ML SQ SCH ×7 (06:35→20:02)
[2021-05-28 08:25] VITALS: BP 118/69
[2021-05-28] MEDS: PANTOPRAZOLE 40 MG TAB DR PO SCH ×2 (08:56→20:02)
[2021-05-28] MEDS: AMLODIPINE 5 MG TAB PO SCH (08:56)
[2021-05-28] MEDS: DEXAMETHASONE SOD PHOSPHATE 4 MG/ML 1ML VIAL IVP SCH ×2 (08:56→20:02)
[2021-05-28] MEDS: SUCRALFATE 1 GM TABLET PO SCH ×4 (08:57→20:02)
[2021-05-28] MEDS: POLYETHYLENE GLYCOL 3350 17 GM POWD.PACK PO SCH (09:00)
[2021-05-28] MEDS: NYSTATIN 15 GM POWDER TP SCH ×3 (09:00→20:03)
[2021-05-28 11:40] VITALS: BP 111/66
[2021-05-28] MEDS: ERYTHROMYCIN BASE 500 MG TABLET PO SCH ×3 (13:26→21:41)
[2021-05-28] MEDS: NEOMYCIN SULFATE 500 MG TAB PO SCH ×3 (13:26→21:41)
[2021-05-28 13:42] LABS: HEMATOCRIT 24.3 % (36-48)
[2021-05-28 16:40] VITALS: BP 108/66
[2021-05-28 17:46] LABS: HEMATOCRIT 23.1 % (36-48)
[2021-05-28 19:52] VITALS: BP 131/78
[2021-05-28] MEDS: ATORVASTATIN 40 MG TABLET PO SCH (20:02)
[2021-05-28] MEDS: LACTATED RINGERS 1000ML 1,000 ML IV SCH (22:05)
[2021-05-28 23:17] VITALS: BP 112/72
[2021-05-29] VITALS (25 sets, daily range): BP systolic 97–138; BP diastolic 43–69
[2021-05-29 01:16] LABS: HEMATOCRIT 20.4 % (36-48)
[2021-05-29] MEDS ORDERED: 0.9% NACL 250ML 250 ML ONE (01:25)
[2021-05-29 05:56] LABS: BASOPHILS % (AUTO) 0.1 % (0.0-5.0); LYMPHOCYTES % (AUTO) 11.3 % (21.0-51.0); MEAN CORPUSCULAR HEMOGLOBIN 28.8 pg (27.0-33.0); MEAN CORPUSCULAR HGB CONC 33.3 g/dL (32.0-36.0); MEAN CORPUSCULAR VOLUME 86.3 fL (79-99); MONOCYTES % (AUTO) 2.9 % (3.0-13.0); NEUTROPHILS % (AUTO) 84.1 % (40.0-77.0); PLATELET COUNT (AUTO) 106 K/uL (130-400); RED BLOOD CELL COUNT(AUTO) 2.78 MIL/uL (4.00-5.50); RED CELL DISTRIBUTION WIDTH 14.5 % (11.0-15.5); WHITE BLOOD COUNT (AUTO) 7.5 K/uL (4.8-10.8)
[2021-05-29] MEDS: INSULIN HUMULIN R 100 UNIT/ML 3ML SQ SCH ×7 (06:05→21:50)
[2021-05-29 06:19] LABS: ALBUMIN 1.9 g/dL (3.5-5.0); BILIRUBIN,TOTAL 0.8 mg/dL (0.2-1.0); POTASSIUM 3.6 mmol/L (3.5-5.1); TOTAL PROTEIN, SERUM 4.6 g/dL (6.0-8.3)
[2021-05-29] MEDS: SUCRALFATE 1 GM TABLET PO SCH ×5 (08:26→21:36)
[2021-05-29] MEDS: POLYETHYLENE GLYCOL 3350 17 GM POWD.PACK PO SCH (08:26)
[2021-05-29] MEDS: PANTOPRAZOLE 40 MG TAB DR PO SCH ×2 (08:26→21:36)
[2021-05-29] MEDS: AMLODIPINE 5 MG TAB PO SCH (08:26)
[2021-05-29] MEDS ORDERED: 0.9%NACL 1000ML 1,000 ML IV ONE (08:52)
[2021-05-29] MEDS: DEXAMETHASONE SOD PHOSPHATE 4 MG/ML 1ML VIAL IVP SCH ×2 (09:00→21:35)
[2021-05-29] MEDS: NYSTATIN 15 GM POWDER TP SCH ×3 (09:00→21:50)
[2021-05-29] MEDS ORDERED: METRONIDAZOLE 500MG/100ML BAG 100 ML ONE (09:09)
[2021-05-29] MEDS ORDERED: GLYCOPYRROLATE 1 MG/5 ML SYRINGE ONE (09:12)
[2021-05-29] MEDS ORDERED: NEOSTIGMINE 5MG/5ML SYR IV ONE (09:12)
[2021-05-29] MEDS ORDERED: MIDAZOLAM HCL 1 MG/ML 2ML VIAL ONE (09:12)
[2021-05-29] MEDS ORDERED: PROPOFOL 10 MG/ML 20ML VIAL IV ONE (09:12)
[2021-05-29] MEDS ORDERED: SUCCINYLCHOLINE 200MG/10ML SYR ONE (09:12)
[2021-05-29] MEDS ORDERED: LIDOCAINE PF 100MG/5ML (2%) SYRINGE 5ML ONE (09:12)
[2021-05-29] MEDS ORDERED: DEXAMETHASONE SOD PHOSPHATE 10MG/ML 1ML VIAL ONE (09:12)
[2021-05-29] MEDS ORDERED: ONDANSETRON 4MG INJ ONE (09:12)
[2021-05-29] MEDS ORDERED: ROCURONIUM 10MG/1ML SYR 10 MG/ML ML ONE ×2 (09:12→10:14)
[2021-05-29] MEDS ORDERED: FENTANYL CITRATE PF 50 MCG/1 ML 2ML VIAL ONE (09:13)
[2021-05-29] MEDS: CEFAZOLIN SODIUM 1 GM VIAL ONE ×2 (09:14→09:45)
[2021-05-29] MEDS ORDERED: MEPERIDINE-PF 25 MG/ML SYG ONE ×2 (09:32→14:47)
[2021-05-29] MEDS ORDERED: LIDOCAINE HCL 1% 20 ML VIAL ONE (10:04)
[2021-05-29] MEDS ORDERED: BUPIVACAINE/PF 0.25% 30ML VIAL IJ ONE (10:04)
[2021-05-29] MEDS ORDERED: KETAMINE HCL 100 MG/ML 5ML VIAL IJ ONE (10:05)
[2021-05-29] MEDS ORDERED: PHENYLEPHRINE HCL 10 MG/ML 1ML VIAL IV ONE (11:19)
[2021-05-29] MEDS ORDERED: EPHEDRINE SULFATE 50 MG/ML AMPULE ONE (11:19)
[2021-05-29] MEDS ORDERED: VASOPRESSIN 20 UNITS/ML 1ML VIAL ONE (11:46)
[2021-05-29] MEDS: ALBUMIN (HUMAN) 25% 100 ML IV ONE ×2 (15:41→15:42)
[2021-05-29] MEDS: ATORVASTATIN 40 MG TABLET PO SCH (21:36)
[2021-05-30] VITALS: BP 120/68
[2021-05-30 04:00] VITALS: BP 106/48
[2021-05-30] MEDS: INSULIN HUMULIN R 100 UNIT/ML 3ML SQ SCH ×7 (06:33→21:36)
[2021-05-30 08:00] VITALS: BP 117/54
[2021-05-30] MEDS: SUCRALFATE 1 GM TABLET PO SCH ×3 (08:26→21:00)
[2021-05-30] MEDS: AMLODIPINE 5 MG TAB PO SCH (08:27)
[2021-05-30] MEDS: PANTOPRAZOLE 40 MG TAB DR PO SCH ×2 (08:27→21:35)
[2021-05-30 08:37] LABS: BASOPHILS % (AUTO) 0.1 % (0.0-5.0); EOSINOPHILS % (AUTO) 2.3 % (0.0-8.0); HEMATOCRIT 24.1 % (36-48); LYMPHOCYTES % (AUTO) 10.6 % (21.0-51.0); MEAN CORPUSCULAR HEMOGLOBIN 30.1 pg (27.0-33.0); MEAN CORPUSCULAR HGB CONC 35.3 g/dL (32.0-36.0); MEAN CORPUSCULAR VOLUME 85.5 fL (79-99); MONOCYTES % (AUTO) 4.5 % (3.0-13.0); NEUTROPHILS % (AUTO) 81.4 % (40.0-77.0); PLATELET COUNT (AUTO) 104 K/uL (130-400); RED BLOOD CELL COUNT(AUTO) 2.82 MIL/uL (4.00-5.50); RED CELL DISTRIBUTION WIDTH 14.6 % (11.0-15.5); WHITE BLOOD COUNT (AUTO) 8.8 K/uL (4.8-10.8)
[2021-05-30 08:43] LABS: POTASSIUM 3.2 mmol/L (3.5-5.1)
[2021-05-30] MEDS: NYSTATIN 15 GM POWDER TP SCH ×3 (09:29→21:37)
[2021-05-30] MEDS: DEXAMETHASONE SOD PHOSPHATE 4 MG/ML 1ML VIAL IVP SCH ×2 (09:29→21:35)
[2021-05-30] MEDS: LACTATED RINGERS 1000ML 1,000 ML IV SCH (09:29)
[2021-05-30 12:00] VITALS: BP 133/62
[2021-05-30 16:00] VITALS: BP 128/70
[2021-05-30] MEDS: ATORVASTATIN 40 MG TABLET PO SCH (21:35)
[2021-05-31] VITALS: BP 127/67
[2021-05-31 04:00] VITALS: BP 132/86
[2021-05-31] MEDS: LACTATED RINGERS 1000ML 1,000 ML IV SCH ×2 (04:48→12:23)
[2021-05-31 05:15] LABS: BASOPHILS % (AUTO) 0.1 % (0.0-5.0); HEMATOCRIT 24.1 % (36-48); LYMPHOCYTES % (AUTO) 7.8 % (21.0-51.0); MEAN CORPUSCULAR HEMOGLOBIN 29.7 pg (27.0-33.0); MEAN CORPUSCULAR HGB CONC 33.6 g/dL (32.0-36.0); MEAN CORPUSCULAR VOLUME 88.3 fL (79-99); MONOCYTES % (AUTO) 3.5 % (3.0-13.0); PLATELET COUNT (AUTO) 98 K/uL (130-400); RED BLOOD CELL COUNT(AUTO) 2.73 MIL/uL (4.00-5.50); RED CELL DISTRIBUTION WIDTH 15.2 % (11.0-15.5); WHITE BLOOD COUNT (AUTO) 8.7 K/uL (4.8-10.8)
[2021-05-31 05:30] LABS: POTASSIUM 3.3 mmol/L (3.5-5.1)
[2021-05-31] MEDS: INSULIN HUMULIN R 100 UNIT/ML 3ML SQ SCH ×6 (06:59→17:29)
[2021-05-31 08:13] VITALS: BP 119/63
[2021-05-31] MEDS: PANTOPRAZOLE 40 MG TAB DR PO SCH (09:25)
[2021-05-31] MEDS: SUCRALFATE 1 GM TABLET PO SCH (09:25)
[2021-05-31] MEDS: AMLODIPINE 5 MG TAB PO SCH (09:25)
[2021-05-31] MEDS: DEXAMETHASONE SOD PHOSPHATE 4 MG/ML 1ML VIAL IVP SCH (09:25)
[2021-05-31] MEDS: NYSTATIN 15 GM POWDER TP SCH (09:27)
[2021-05-31 10:52] VITALS: BP 125/64
[2021-05-31] MEDS ORDERED: PANT40TA PO (11:00)
[2021-05-31] MEDS ORDERED: AMLO5TAB4 PO (11:00)
[2021-05-31] MEDS ORDERED: ATOR40TA69 PO (11:00)
[2021-05-31] MEDS ORDERED: SUCR1TAB PO (11:00)
[2021-05-31 16:14] VITALS: BP 113/65
== END 2021-05-31 18:50 | disposition home or self-care (01) | DRG 628 ==
LOC: EDH 22:57 → INTOOBSV 22:58 → EDHIP 22:58 → OBSVTOIN 22:58 → 4BH 04-23 22:13 → 2AH 05-05 02:13 → 3BH 05-24 17:45
PROVIDERS: ADMIT Internal Medicine; ATTEND Internal Medicine
PROC: 5A0935A Assistance with Respiratory Ventilation, Less than 24 Consecutive Hours, High Flow/Velocity Cannula (ICD-10-PCS; 2021-04-19)
PROC: 5A0935A Assistance with Respiratory Ventilation, Less than 24 Consecutive Hours, High Flow/Velocity Cannula (ICD-10-PCS; 2021-04-20)
PROC: 5A0935A Assistance with Respiratory Ventilation, Less than 24 Consecutive Hours, High Flow/Velocity Cannula (ICD-10-PCS; 2021-04-21)
PROC: XW0DXM6 Introduction of Baricitinib into Mouth and Pharynx, External Approach, New Technology Group 6 (ICD-10-PCS; 2021-04-22)
PROC: 5A0935A Assistance with Respiratory Ventilation, Less than 24 Consecutive Hours, High Flow/Velocity Cannula (ICD-10-PCS; 2021-04-22)
PROC: XW033E5 Introduction of Remdesivir Anti-infective into Peripheral Vein, Percutaneous Approach, New Technology Group 5 (ICD-10-PCS; 2021-04-23)
PROC: 5A0935A Assistance with Respiratory Ventilation, Less than 24 Consecutive Hours, High Flow/Velocity Cannula (ICD-10-PCS; 2021-04-23)
PROC: 5A0935A Assistance with Respiratory Ventilation, Less than 24 Consecutive Hours, High Flow/Velocity Cannula (ICD-10-PCS; 2021-04-24)
PROC: 5A0935A Assistance with Respiratory Ventilation, Less than 24 Consecutive Hours, High Flow/Velocity Cannula (ICD-10-PCS; 2021-04-25)
PROC: 5A0935A Assistance with Respiratory Ventilation, Less than 24 Consecutive Hours, High Flow/Velocity Cannula (ICD-10-PCS; 2021-04-26)
PROC: 5A0935A Assistance with Respiratory Ventilation, Less than 24 Consecutive Hours, High Flow/Velocity Cannula (ICD-10-PCS; 2021-04-27)
PROC: 02HV33Z Insertion of Infusion Device into Superior Vena Cava, Percutaneous Approach (ICD-10-PCS; 2021-05-06)
PROC: 5A0935A Assistance with Respiratory Ventilation, Less than 24 Consecutive Hours, High Flow/Velocity Cannula (ICD-10-PCS; 2021-05-08)
PROC: 5A0935A Assistance with Respiratory Ventilation, Less than 24 Consecutive Hours, High Flow/Velocity Cannula (ICD-10-PCS; 2021-05-09)
PROC: 5A0935A Assistance with Respiratory Ventilation, Less than 24 Consecutive Hours, High Flow/Velocity Cannula (ICD-10-PCS; 2021-05-10)
PROC: 30233N1 Transfusion of Nonautologous Red Blood Cells into Peripheral Vein, Percutaneous Approach (ICD-10-PCS; 2021-05-11)
PROC: 5A0935A Assistance with Respiratory Ventilation, Less than 24 Consecutive Hours, High Flow/Velocity Cannula (ICD-10-PCS; 2021-05-11)
PROC: 5A0935A Assistance with Respiratory Ventilation, Less than 24 Consecutive Hours, High Flow/Velocity Cannula (ICD-10-PCS; 2021-05-12)
PROC: 5A0935A Assistance with Respiratory Ventilation, Less than 24 Consecutive Hours, High Flow/Velocity Cannula (ICD-10-PCS; 2021-05-13)
PROC: 5A0935A Assistance with Respiratory Ventilation, Less than 24 Consecutive Hours, High Flow/Velocity Cannula (ICD-10-PCS; 2021-05-14)
PROC: 5A0935A Assistance with Respiratory Ventilation, Less than 24 Consecutive Hours, High Flow/Velocity Cannula (ICD-10-PCS; 2021-05-15)
PROC: 5A0935A Assistance with Respiratory Ventilation, Less than 24 Consecutive Hours, High Flow/Velocity Cannula (ICD-10-PCS; 2021-05-16)
PROC: 3E05317 Introduction of Other Thrombolytic into Peripheral Artery, Percutaneous Approach (ICD-10-PCS; 2021-05-16)
PROC: 0DBM8ZX Excision of Descending Colon, Via Natural or Artificial Opening Endoscopic, Diagnostic (ICD-10-PCS; 2021-05-21)
PROC: 0DTG0ZZ Resection of Left Large Intestine, Open Approach (ICD-10-PCS; principal; 2021-05-29 12:00)
DX: E11.10 Type 2 diabetes mellitus with ketoacidosis without coma (principal); U07.1 COVID-19; J12.82 Pneumonia due to coronavirus disease 2019; N17.0 Acute kidney failure with tubular necrosis; G93.41 Metabolic encephalopathy; J80 Acute respiratory distress syndrome; C18.6 Malignant neoplasm of descending colon; K56.690 Other partial intestinal obstruction; D68.59 Other primary thrombophilia; E87.0 Hyperosmolality and hypernatremia; B37.0 Candidal stomatitis; D62 Acute posthemorrhagic anemia; B37.49 Other urogenital candidiasis; E22.2 Syndrome of inappropriate secretion of antidiuretic hormone; I82.621 Acute embolism and thrombosis of deep veins of right upper extremity; I82.819 Embolism and thrombosis of superficial veins of unspecified lower extremity; K92.2 Gastrointestinal hemorrhage, unspecified; E11.22 Type 2 diabetes mellitus with diabetic chronic kidney disease; E66.01 Morbid (severe) obesity due to excess calories; Z68.36 Body mass index [BMI] 36.0-36.9, adult; I12.9 Hypertensive chronic kidney disease with stage 1 through stage 4 chronic kidney disease, or unspecified chronic kidney disease; D69.6 Thrombocytopenia, unspecified; E11.649 Type 2 diabetes mellitus with hypoglycemia without coma; E78.00 Pure hypercholesterolemia, unspecified; E78.5 Hyperlipidemia, unspecified; E83.42 Hypomagnesemia; E86.0 Dehydration; E87.6 Hypokalemia; E87.70 Fluid overload, unspecified; E88.09 Other disorders of plasma-protein metabolism, not elsewhere classified; E87.8 Other disorders of electrolyte and fluid balance, not elsewhere classified; E11.42 Type 2 diabetes mellitus with diabetic polyneuropathy; K12.30 Oral mucositis (ulcerative), unspecified; K66.0 Peritoneal adhesions (postprocedural) (postinfection); N18.9 Chronic kidney disease, unspecified; R62.7 Adult failure to thrive; T38.0X5A Adverse effect of glucocorticoids and synthetic analogues, initial encounter; T38.3X5A Adverse effect of insulin and oral hypoglycemic [antidiabetic] drugs, initial encounter; Y92.89 Other specified places as the place of occurrence of the external cause; Z74.01 Bed confinement status; Z79.4 Long term (current) use of insulin; Z91.19 Patient's noncompliance with other medical treatment and regimen; Z86.39 Personal history of other endocrine, nutritional and metabolic disease; Z83.3 Family history of diabetes mellitus; Z82.49 Family history of ischemic heart disease and other diseases of the circulatory system
CPT/HCPCS: 36415; 36430; 36600; 45380; 45381; 71045; 71250; 71260; 71275; 74177; 76770; 80048; 80053; 80061; 81001; 82010; 82140; 82248; 82270; 82378; 82435; 82550; 82570; 82607; 82728; 82746; 82803; 82947; 82948; 83010; 83036; 83540; 83550; 83605; 83615; 83735; 83880; 83935; 84100; 84132; 84145; 84156; 84295; 84300; 84443; 84484; 84630; 85014; 85018; 85025; 85027; 85045; 85378; 85610; 85730; 86022; 86140; 86160; 86255; 86850; 86900; 86901; 86922; 86923; 87040; 87088; 87635; 93005; 93306; 93356; 93970; 97039; A4344; A4606; C1751; C1894; C9113; G0378; J0330; J0360; J0456; J0690; J0692; J0696; J1100; J1450; J1644; J1650; J1815; J2001; J2020; J2175; J2250; J2370; J2405; J2704; J2710; J2920; J2997; J3010; J3475; J3480; J3490; J7030; J7040; J7050; J7070; J7120; P9016; P9047; Q9963; Q9967